=== PATIENT | male | born 1960 | race Caucasian/White ===

== ENCOUNTER 2016-12-15 23:15 | Emergency (ER) | payer OTHER ==
[~2016-12-15] VITALS: Ht 162.6 cm; Wt 74.8 kg
[~2016-12-15 23:15] MED LIST: AUGMENTIN 875 M1 TAB PO; COZAAR50 MG PO; GLUCOPHAGE500 MG PO; ZOCOR20 MG PO; [UNRECOGNIZED DRUG - OTHER] OT
--- NOTE | 2016-12-15 23:30 | NUR ---
PT TAKEN TO BED 3
[2016-12-15 23:32] VITALS: BP 114/87
--- NOTE | 2016-12-15 23:39 | NUR ---
56Y/M PATIENT PRESENT TO ED WITH C/O HEADACHE AND EARACHE X2 DAYS. PATIENT STATES HE HAS DRAINAGE COMING FROM DOREEN EARS. DENIES N/V/D, FEVER X1. WAS SEEN BY PCP 2WKS AGO, REFERRED TO ENT; PRESCRIBED EARDROPS AND ABX. HX:DM,HTN ; SKIN IS PINK/WARM/DRY; AAOX4 WITH EVEN AND STEADY GAIT; LUNGS CLEAR BL; HR EVEN AND REGULAR; PT DENIES ANY FEVER, CP, SOB, OR COUGH AT THIS TIME; PATIENT STATES PAIN OF 10/10 AT THIS TIME; VSS; PATIENT POSITIONED FOR COMFORT; HOB ELEVATED; BEDRAILS UP X2; BED DOWN. ER MD MADE AWARE OF PT STATUS.
--- NOTE | 2016-12-15 23:40 | NUR ---
Dr. Pulido evaluating patient at bedside.
[2016-12-15] MEDS ORDERED: HYDROcodone/APAP 5/325 MG 1 TAB TAB PO ONE (23:45)
[2016-12-15] MEDS ORDERED: KETOROLAC 30 MG/ML VIAL IVP ONE (23:45)
[2016-12-15] MEDS ORDERED: NACL 0.9% 1,000 ML IV ONE (23:45)
--- NOTE | 2016-12-16 00:20 | NUR ---
CALLED CT. LAB BACK, IV DONE.
--- NOTE | 2016-12-16 00:31 | NUR ---
PT TAKEN TO CT
--- NOTE | 2016-12-16 00:56 | NUR ---
PT BACK FROM CT.
[2016-12-16] MEDS ORDERED: fentaNYL 0.05 MG/ML VIAL IVP ONE (01:20)
--- NOTE | 2016-12-16 01:46 | NUR ---
Patient discharged with v/s stable. Written and verbal after care instructions given and explained. Patient alert, oriented and verbalized understanding of instructions. Ambulatory with steady gait. All questions addressed prior to discharge. ID band removed. Patient advised to follow up with PMD. Rx of NAPROSYN 500 MG, CIPRO 500 MG, NORCO5/325MG, OFLOXACIN 0.3% OTIC SOLUTION given. Patient educated on indication of medication including possible reaction and side effects. Opportunity to ask questions provided and answered.
[2016-12-16 01:47] VITALS: BP 123/72
== END 2016-12-16 01:46 | disposition home or self-care (01) ==
LOC: MED 23:15
DX: H60.91 Unspecified otitis externa, right ear (principal); E11.9 Type 2 diabetes mellitus without complications; I10 Essential (primary) hypertension
CPT/HCPCS: 36415; 70460; 80048; 82948; 85025; 96361; 96374; 96375; 99285; J1885; J3010; J7030

== ENCOUNTER 2017-02-06 09:39 | Emergency (ER) | payer OTHER ==
[~2017-02-06] VITALS: Ht 160 cm; Wt 78.0 kg
[2017-02-06 09:44] VITALS: BP 141/90
--- NOTE | 2017-02-06 09:52 | NUR ---
Pt ambulated to bed 7.
--- NOTE | 2017-02-06 09:56 | NUR ---
Patient moved to bed 6.
--- NOTE | 2017-02-06 10:03 | NUR ---
57/M PRESENT TO ER C/O LEFT LEG PAIN. 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
--- NOTE | 2017-02-06 10:07 | NUR ---
XRAY AT BEDSIDE
--- NOTE | 2017-02-06 10:26 | NUR ---
DR DUBOIS AT BEDSIDE
[2017-02-06] MEDS ORDERED: KETOROLAC 30 MG/ML VIAL IVP ONE (10:30)
[2017-02-06] MEDS ORDERED: NACL 0.9% 1,000 ML IV ONE (10:30)
[2017-02-06] MEDS ORDERED: CLINDAMYCIN 900 MG in DEXTROSE 5% 100 ML IV ONE (10:30)
[2017-02-06] MEDS ORDERED: CLINDAMYCIN 900 MG/6 ML VIAL IV ONE (10:43)
--- NOTE | 2017-02-06 11:29 | NUR ---
PT LYING ON BED COMFORTABLY;NO ACUTE DSITRESS NOTED AT THIS TIME;PT VERBALIZES PAIN IS REDUCED FROM 8/10 TO 5/10;WILL CONTINUE TO MONITOR PT.
--- NOTE | 2017-02-06 12:25 | NUR ---
Patient discharged with v/s stable. Written and verbal after care instructions given and explained.Patient alert, oriented and verbalized understanding of instructions. with steady gait. All questions addressed prior to discharge. ID band removed. Patient advised to follow up with PMD. Rx of TRAMADOL HYDROCHLORIDE,BACTRIM,MOTRIN given. Patient educated on indication of medication including possible reaction and side effects. Opportunity to ask questions provided and answered.ADVISED PT TO REFRAIN FROM STRENOUS ACTIVITIES UNTIL PAIN SUBSIDES AND AND EAT FOODS RICH IN IT C TO HASTEN WOUND HEALING AND PT AGREED TO IT.
[2017-02-06 12:28] VITALS: BP 116/82
--- NOTE | 2017-02-09 14:03 | NUR ---
CALLED PATIENT AT NUMBER LEFT WITH NO ANSWER LEFTVOICE MAIL INSTRUCTING HIM TO FOLLOW UP WITH PMD.
== END 2017-02-06 12:25 | disposition home or self-care (01) ==
LOC: MED 09:39
DX: L03.116 Cellulitis of left lower limb (principal); I10 Essential (primary) hypertension; E11.9 Type 2 diabetes mellitus without complications; Z79.899 Other long term (current) drug therapy
CPT/HCPCS: 36415; 71010; 73562; 80053; 82948; 83605; 85025; 85610; 85730; 87040; 96365; 96375; 99285; J1885; J3490; J7030; Q0092

== ENCOUNTER 2017-10-27 18:50 | Inpatient (IN) | payer OTHER ==
[~2017-10-27] VITALS: Ht 162.6 cm; Wt 78.9 kg
[~2017-10-27 18:50] MED LIST changes: +AMOX-842 PO; -AUGMENTIN 875 M1 TAB PO; +COZ50 PO; -COZAAR50 MG PO; -GLUCOPHAGE500 MG PO; +METF500T PO; +OFLO5SOL27 OT; +SIMV20TA1 PO; -ZOCOR20 MG PO; -[UNRECOGNIZED DRUG - OTHER] OT
[2017-10-27 19:14] VITALS: BP 147/76
--- NOTE | 2017-10-27 19:14 | NUR ---
PT RETURNED TO LOBBY
[2017-10-27] MEDS ORDERED: ORE25 PO (19:18)
--- NOTE | 2017-10-27 19:35 | NUR ---
MADE AWARE PT IN LOBBY
--- NOTE | 2017-10-27 20:00 | NUR ---
PATIENT IS A 57 Y/O MALE WHO PRESENTS TO THE ED C/O HEADACHE. PT STATES, "MY HEAD HAS BEEN HURTING." PT REPORTS 9/10 ACHING PAIN THAT DOES NOT RADIATE. PT DENIES CP, SOB, REPORTS VOMITING DENIES NAUSEA/DIARRHEA. PT AAOX4, RR EVEN/UNLABORED. PT REPOSITIONED FOR COMFORT, BED IN LOWEST POSITION. ER MD DR. CAIN NOTIFIED. WILL CONTINUE TO MONITOR.
[2017-10-27] MEDS ORDERED: KETOROLAC 30 MG/ML VIAL IM ONE (20:20)
[2017-10-27] MEDS ORDERED: ONDANSETRON 4 MG ODT PO ONE (20:20)
--- NOTE | 2017-10-27 20:57 | NUR ---
LAB AT BEDSIDE
[2017-10-27] MEDS ORDERED: NACL 0.9% 1,000 ML IV ONE ×2 (21:00→22:40)
[2017-10-27] MEDS ORDERED: SUMAtriptan 25 MG TAB PO ONE (21:00)
[2017-10-27 21:03] LABS: BASOPHILS % (AUTO) 0.4 % (0.0-2.0); EOSINOPHILS # (AUTO) 0.2 K/uL (0-0.4); EOSINOPHILS % (AUTO) 1.5 % (0.0-4.0); HEMOGLOBIN 16.9 g/dL (12.0-18.0); LYMPHOCYTES # (AUTO) 1.9 K/uL (2.0-11.5); LYMPHOCYTES % (AUTO) 15.9 % (20.5-51.1); MEAN CORPUSCULAR HEMOGLOBIN 28 pg (27-31); MEAN CORPUSCULAR HGB CONC 33 g/dL (33-37); MEAN CORPUSCULAR VOLUME 87 fL (80-94); MONOCYTES # (AUTO) 0.6 K/uL (0.8-1.0); MONOCYTES % (AUTO) 5.5 % (1.7-9.3); NEUTROPHILS # (AUTO) 9.1 K/uL (1.8-7.7); NEUTROPHILS % (AUTO) 76.7 % (42.2-75.2); PLATELET COUNT (AUTO) 214 K/uL (140-450); RED BLOOD CELL COUNT(AUTO) 5.97 MIL/uL (4.20-6.10); WHITE BLOOD COUNT (AUTO) 11.8 K/uL (4.8-10.8)
[2017-10-27 21:16] LABS: CARBON DIOXIDE 25.7 mmol/L (21-32); CREATININE 1.5 mg/dL (0.7-1.3); POTASSIUM 3.7 mmol/L (3.5-5.1)
[2017-10-27 21:22] LABS: ALBUMIN 3.7 g/dL (3.4-5.0); TOTAL BILIRUBIN 0.5 mg/dL (0.0-1.0)
--- NOTE | 2017-10-27 21:40 | NUR ---
PATIENT MOVED TO ER BED 1.
[2017-10-27] MEDS ORDERED: MORPHINE SULFATE 4 MG/ML SYR IVP ONE (22:15)
[2017-10-27] MEDS ORDERED: PIPERACILLIN/TAZOBACTAM 3.375 GM in DEXTROSE 5% 50 ML IV ONE (22:20)
[2017-10-27] MEDS ORDERED: PIPERACILLIN/TAZOBACTAM 3.375 GM VIAL IV ONE (22:51)
[2017-10-27] MEDS ORDERED: DEXT 5% / NACL 0.45% 1,000 ML IV SCH (23:13)
[2017-10-27] MEDS ORDERED: MORPHINE SULFATE 2 MG/ML SYR IVP PRN (23:15)
[2017-10-27] MEDS ORDERED: ONDANSETRON 4 MG/2 ML VIAL IVP PRN (23:15)
[2017-10-27] MEDS ORDERED: HYDROcodone/APAP 5/325 MG 1 TAB TAB PO PRN (23:15)
[2017-10-27] MEDS ORDERED: LORazepam 2 MG/ML VIAL IVP PRN (23:15)
--- NOTE | 2017-10-27 23:55 | NUR ---
Admission from ER alert and oreinted breathing even and unlabored on room air. Complaint of headache and abdominal pain just had morphine gioven in ER . Will monitor patient.
--- NOTE | 2017-10-28 00:02 | NUR ---
Patient will be admitted to care of DR LUCAS. Admited to MED SURG. Will go to room 106-B. Belongings list completed. Report to ROSINA.
[2017-10-28 01:13] VITALS: BP 124/78
[2017-10-28] MEDS ORDERED: metroNIDAZOLE 500 MG/NS PREMIX 100 ML IV ONE (02:30)
[2017-10-28] MEDS: MORPHINE SULFATE 4 MG/ML SYR IVP PRN ×4 (03:24→19:54)
[2017-10-28 04:00] VITALS: BP 114/70
[2017-10-28 06:13] LABS: BASOPHILS # (AUTO) 0.1 K/uL (0.00-0.22); BASOPHILS % (AUTO) 1.2 % (0.0-2.0); EOSINOPHILS # (AUTO) 0.3 K/uL (0-0.4); EOSINOPHILS % (AUTO) 3.1 % (0.0-4.0); HEMATOCRIT 44.8 % (36-52); HEMOGLOBIN 14.8 g/dL (12.0-18.0); LYMPHOCYTES % (AUTO) 11.7 % (20.5-51.1); MEAN CORPUSCULAR HEMOGLOBIN 29 pg (27-31); MEAN CORPUSCULAR HGB CONC 33 g/dL (33-37); MEAN CORPUSCULAR VOLUME 88 fL (80-94); MONOCYTES % (AUTO) 10.8 % (1.7-9.3); NEUTROPHILS # (AUTO) 6.4 K/uL (1.8-7.7); NEUTROPHILS % (AUTO) 73.2 % (42.2-75.2); PLATELET COUNT (AUTO) 179 K/uL (140-450); RED BLOOD CELL COUNT(AUTO) 5.11 MIL/uL (4.20-6.10); RED CELL DISTRIBUTION WIDTH 13.2 % (11.6-13.7); WHITE BLOOD COUNT (AUTO) 8.8 K/uL (4.8-10.8)
[2017-10-28 06:51] LABS: ALBUMIN 2.8 g/dL (3.4-5.0); ANION GAP 12.5 (8-16); CARBON DIOXIDE 24.5 mmol/L (21-32); CREATININE 1.1 mg/dL (0.7-1.3); MAGNESIUM 1.9 mg/dL (1.8-2.4); TOTAL BILIRUBIN 0.5 mg/dL (0.0-1.0)
--- NOTE | 2017-10-28 07:30 | NUR ---
REPORT RECEIVED FROM CORPORATE COMMUNICATIONS MANAGER NURSE ROSINA, PT SLEEPING QUIELTY IN NAD, RESP EVEN UNLABORED ON ROOM AIR, AROUSES EASILY BY VOICE, DENIES PAIN OR DISCOMFORT, DENIES ANY IMMEDIATE NEEDS, PLAN OF CARE DISCUSSED, CALL LUIS WITHIN REACH, SIDE RAILS UP, BED LOCKED IN LOW POSITION, WILL CONTINUE TO MONTIOR.
[2017-10-28 08:00] VITALS: BP 120/72
[2017-10-28] MEDS: ENOXAPARIN 40 MG/0.4 ML SYR SUBQ SCH (08:13)
--- NOTE | 2017-10-28 08:20 | NUR ---
PT C/O LEF UPPER ABD PAIN, 06/18, ALSO C/O SAUL, MORPHINE GIVEN PER PRN ORDER, IV ANTIBIOTICS STARTED SCHEDULED, WILL CONTINUE TO MONITOR.
--- NOTE | 2017-10-28 08:20 | NUR ---
ROCEPHIN 1000MG IN 50ML D5W IVPB STARTED AT THIS TIME AT 100ML/HR.
--- NOTE | 2017-10-28 08:40 | NUR ---
DR LUCAS AT BEDSIDE FOR EVALUATION.
--- NOTE | 2017-10-28 08:50 | NUR ---
ROCEPHIN 1000MG IN 50ML D5W IVPB INFUSION COMPLETED AT THIS TIME.
[2017-10-28] MEDS ORDERED: INSULIN LISPRO SLIDING SCALE 100 UNITS/ML VIAL SUBQ PRN (08:55)
[2017-10-28] MEDS ORDERED: DEXTROSE 50% 50 ML SYR IVP PRN (08:55)
[2017-10-28] MEDS ORDERED: metroNIDAZOLE 500 MG/NS PREMIX 100 ML IV SCH (09:00)
[2017-10-28] MEDS ORDERED: MOT200 PO (09:06)
[2017-10-28] MEDS ORDERED: AMOX-1000 PO (09:06)
[2017-10-28] MEDS ORDERED: GUAI-652 PO (09:06)
--- NOTE | 2017-10-28 10:30 | NUR ---
PT STATES HE WANTS TRY EATING REGULAR FOOD AND WANT TO GO HOME BEFORE 12NOON, PT PROVIDED WITH CRACKERS AND APPLESAUCE, WILL CONTINUE TO MONITOR.
[2017-10-28] MEDS: BLOOD GLUCOSE MONITORING 1 DEV DEV FS SCH ×3 (11:30→21:32)
[2017-10-28] MEDS: metroNIDAZOLE 500 MG/NS PREMIX 100 ML IV SCH ×2 (12:00→20:04)
--- NOTE | 2017-10-28 12:00 | NUR ---
FLAGYL 500MG IN 100ML NS IVPB STARTED AT 100ML/HR.
[2017-10-28] MEDS: ACETAMINOPHEN 325 MG TAB PO PRN ×2 (12:02→20:11)
--- NOTE | 2017-10-28 12:07 | NUR ---
PT C/O SAUL, STATES HE WANTS TO STAY AND NOT GET DISCHARGED TODAY, TYLENOL GIVEN FOR SAUL, BLOOD SUGAR CHECKED 178. WILL GIVEN 2U INSULIN PER SLIDING SCALE. FLAGYL STARTED PER ORDER. IV SITE CLEAR. Addendum: 10/28/17 at 1224 by Aishwarya Morel RN PT FEELS WARM/HOT TO TOUCH, ORAL TEMP 99.6.
--- NOTE | 2017-10-28 13:00 | NUR ---
FLAGYL 500MG IN 100ML NS IVPB INFUSION COMPLETED AT THIS TIME.
--- NOTE | 2017-10-28 14:20 | NUR ---
PT YUAN PO LUNCH WELL, STATES ABD PAIN ONLY WITH PALPATION, BUT PT CONTINUES TO C/O SAUL, PT STATES HE DOESNT FEEL WELL ENOUGH TO GO HOME, DR LUCAS CALLED TO NOTIFY OF PT'S REQUEST TO STAY, OK BY DR LUCAS FOR PT TO STAY, PT STATUS CHANGED TO INPATIENT STATUS.
--- NOTE | 2017-10-28 15:52 | NUR ---
WAS TOLD BY ANDRAE FROM [facility] THIS AM, THAT [facility] IS NO LONGER, AND IT NOW [facility]. I CALLED [employer],[phone] AND SPOKE WITH JOYCELYN. SHE SAID TO JUST FAX THE FACE SHEET TO [employer] AT [phone], OTHERWISE STEPHANIE IS RESPONSIBLE FOR THIS ADMIT FAXED INITIAL REVIEW TO STEPHANIE [phone] PHONE [phone] X [phone] TIARA.
[2017-10-28 16:00] VITALS: BP 128/72
--- NOTE | 2017-10-28 16:30 | NUR ---
PT SLEEPING QUIETLY IN NAD, AROUSES EASILY, PT STATES HEADACHE IS STILL THERE BUT BETTER THAN BEFORE, PT IN GOOD MOOD, JOKING ABOUT "ORDERING JAYDON TIJERINAS", BLOOD SUGAR CHECKED, 104, NO INSULIN NEEDED, PT DENIES ANY IMMEDIATE NEEDS, WILL CONTINUE TO MONTIOR.
--- NOTE | 2017-10-28 19:26 | NUR ---
REPORT GIVEN TO AERONAUTICAL ENGINEERING PROFESSOR NURSE, PT IN STABLE CONDITION.
--- NOTE | 2017-10-28 19:27 | NUR ---
RECD. RESTING IN BED, AWAKE, A/OX4. RESPIRATION EVEN AND UNLABORED. IV OF NS AT 10 ML/HR INFUSING, LEFT AC G20. PLAN OF CARE FOR THE SHIFT DISCUSSED. VERBALIZE UNDERSTANDING. DENIES PAIN 0/10.
--- NOTE | 2017-10-28 19:30 | NUR ---
Patient's Plan of Care was discussed and reviewed with ASSEMBLY MACHINE SET UP MECHANIC: TERRI VAIL
[2017-10-28 19:51] VITALS: BP 119/68
--- NOTE | 2017-10-28 20:11 | NUR ---
TEMPERATURE CHECKED - 102.5 F, MEDICATED WITH TYLENOL 650 MG. PO. COOLING MEASURES GIVEN.
--- NOTE | 2017-10-28 21:20 | NUR ---
TEMPERATURE CHECKED - 99.0 F. ADVISED TO REMOVE EXTRA BLANKETS AND DRINK MORE FLUIDS.
--- NOTE | 2017-10-28 21:30 | NUR ---
SNACK FOR THE NIGHT GIVEN. WATCHING TV.
--- NOTE | 2017-10-28 23:15 | NUR ---
COMPLAINING OF UNABLE TO SLEEP FOR 36 HOURS NOW, WILL CALL MD FOR ORDER FOR SLEEPING PILL.
--- NOTE | 2017-10-28 23:30 | NUR ---
INFORMED DR. MICHEL PATIENT UNABLE TO GO HOME TODAY, STILL COMPLAINING OF ABDOMINAL PAIN AND WANTS MEDICATION FOR SLEEP, ORDERED AMBIEN 5 MG. PO .
[2017-10-28] MEDS ORDERED: ZOLPIDEM 5 MG TAB PO PRN (23:35)
--- NOTE | 2017-10-29 00:18 | NUR ---
MEDICATED WITH AMBIEN 5 MG. PO ORDERED FOR SLEEP.
[2017-10-29 00:20] VITALS: BP 125/76
--- NOTE | 2017-10-29 00:30 | NUR ---
AFEBRILE, RESTING IN BED COMFORTABLY. ENDORSED TO HONORIO WATERS FOR CONTINUITY OF CARE.
--- NOTE | 2017-10-29 01:30 | NUR ---
RECEIVED BEDSIDE REPORT FROM NURSE TERRI PEARSON, PT STABLE, NO DISTRESS NOTED, CALL LIGHT WITHIN REACH, WILL CONTINUE TO MONITOR.
[2017-10-29] MEDS: metroNIDAZOLE 500 MG/NS PREMIX 100 ML IV SCH (04:26)
[2017-10-29] MEDS: MORPHINE SULFATE 4 MG/ML SYR IVP PRN (04:26)
[2017-10-29] MEDS: BLOOD GLUCOSE MONITORING 1 DEV DEV FS SCH (06:58)
[2017-10-29 07:11] LABS: BASOPHILS # (AUTO) 0.1 K/uL (0.00-0.22); BASOPHILS % (AUTO) 0.8 % (0.0-2.0); EOSINOPHILS # (AUTO) 0.2 K/uL (0-0.4); EOSINOPHILS % (AUTO) 2.9 % (0.0-4.0); HEMATOCRIT 46.2 % (36-52); HEMOGLOBIN 15.3 g/dL (12.0-18.0); LYMPHOCYTES # (AUTO) 0.8 K/uL (2.0-11.5); LYMPHOCYTES % (AUTO) 11.9 % (20.5-51.1); MEAN CORPUSCULAR HEMOGLOBIN 29 pg (27-31); MEAN CORPUSCULAR HGB CONC 33 g/dL (33-37); MEAN CORPUSCULAR VOLUME 87 fL (80-94); MONOCYTES # (AUTO) 0.6 K/uL (0.8-1.0); MONOCYTES % (AUTO) 9.1 % (1.7-9.3); NEUTROPHILS # (AUTO) 4.7 K/uL (1.8-7.7); NEUTROPHILS % (AUTO) 75.3 % (42.2-75.2); PLATELET COUNT (AUTO) 196 K/uL (140-450); RED BLOOD CELL COUNT(AUTO) 5.33 MIL/uL (4.20-6.10); RED CELL DISTRIBUTION WIDTH 13.2 % (11.6-13.7)
--- NOTE | 2017-10-29 07:17 | NUR ---
GAVE BEDSIDE TO DAY SHIFT NURSE JUS OLMEDO, ENDORSED PLAN OF CARE, PT STABLE, NO DISTRESS NOTED. Addendum: 10/29/17 at 8418 by Cata Menezes RN WRONG PATIENT
--- NOTE | 2017-10-29 07:17 | NUR ---
ASSUMED CONTINUITY OF CARE. NO SIGNS AND SYMPTOMS OF ACUTE DISTRESS NOTED. INITIAL ASSESSMENT DONE. KEEP COMFORTABLE ON BED. EXPLAINED DIAGNOSIS, PLAN OF CARE, PAIN MANAGEMENT TEACHING, USE OF CALL LIGHT/BED/TV/BATHROOM. VERBALIZED UNDERSTANDING. CALL LIGHT WITHIN REACH.
--- NOTE | 2017-10-29 07:17 | NUR ---
GAVE BEDSIDE TO DAY SHIFT NURSE TY PEARSON, ENDORSED PLAN OF CARE, PT STABLE, NO DISTRESS NOTED.
[2017-10-29 07:22] LABS: ANION GAP 10.8 (8-16); CARBON DIOXIDE 25.8 mmol/L (21-32); POTASSIUM 3.6 mmol/L (3.5-5.1)
[2017-10-29 08:00] VITALS: BP 124/83
--- NOTE | 2017-10-29 08:00 | NUR ---
Patient's Plan of Care was discussed and reviewed with GLASS DECORATOR: TY RODRÍGUEZ. ANA
[2017-10-29 08:02] LABS: WHITE BLOOD COUNT (AUTO) 6.4 K/uL (4.8-10.8)
--- NOTE | 2017-10-29 08:35 | NUR ---
DR. SHAYY PEREYRA, REVIEWED PT. CHART.
[2017-10-29] MEDS: ENOXAPARIN 40 MG/0.4 ML SYR SUBQ SCH (09:01)
--- NOTE | 2017-10-29 09:30 | NUR ---
INFORMED DR. LUCAS ABOUT PT. D/C ORDER.
--- NOTE | 2017-10-29 10:40 | NUR ---
EXPLAINED ABOUT MD D/C ORDER, D/C INSTRUCTIONS AND TEACHING, MD D/C PRESCRIPTION LIST EDUCATION, MD FOLLOW-UP, DISEASE MANAGEMENT TEACHING, PAIN MANAGEMENT TEACHING, DIET. VERBALIZED UNDERSTANDING.
--- NOTE | 2017-10-29 10:55 | NUR ---
REFUSED TO USE WHEELCHAIR. PT. AMBULATORY AND HAD STEADY GAIT AND BALANCE. D/C HOME, AWAKE, ALERT, AND ORIENTED X4. SPEECH CLEAR. NO C/O PAIN. NO SOB, NOTED. IN STABLE CONDITION. INFORMED CHARGE NURSE MAGGIE SORENSON.
== END 2017-10-29 10:55 | disposition home or self-care (01) | DRG 720 ==
LOC: MED 18:50 → MTU 23:26 → OBSVTOIN 10-28 13:56
PROVIDERS: ADMIT Internal Medicine; ATTEND Internal Medicine
DX: A41.9 Sepsis, unspecified organism (principal); N17.9 Acute kidney failure, unspecified; G43.909 Migraine, unspecified, not intractable, without status migrainosus; K57.32 Diverticulitis of large intestine without perforation or abscess without bleeding; I10 Essential (primary) hypertension; J06.9 Acute upper respiratory infection, unspecified; E11.9 Type 2 diabetes mellitus without complications; H66.93 Otitis media, unspecified, bilateral; F17.200 Nicotine dependence, unspecified, uncomplicated; Z71.6 Tobacco abuse counseling; Z87.442 Personal history of urinary calculi
CPT/HCPCS: 96361; 96365; 96372; 96375; 99285; G0378; 36415; 71010; 80048; 80053; 82948; 83605; 83690; 83735; 85025; 87040; 87081; J0696; J1650; J1815; J1885; J2270; J2543; J3490; J7030; J7060; S0119

== ENCOUNTER 2017-11-23 18:27 | Emergency (ER) | payer OTHER ==
[~2017-11-23] VITALS: Ht 162.6 cm; Wt 74.8 kg
[~2017-11-23 18:27] MED LIST changes: +AMOX-1000 PO; -AMOX-842 PO; +GUAI-652 PO; +MOT200 PO; -OFLO5SOL27 OT; +ORE25 PO
[2017-11-23 19:20] VITALS: BP 142/90
--- NOTE | 2017-11-23 19:22 | NUR ---
TO LOBBY, A/W BED, JADA, VSJany, ERMHellen NOTED
--- NOTE | 2017-11-23 21:46 | NUR ---
PT CAME IN C/O MID BACK PAIN 07/19 WHERE THE ROUND AND RAISED AREA IS X4 DAYS. PT STATED THAT HE HAD THE BUMP FOR A WHILE BUT THE PAIN BECAME WORSE SINCE THURSDAY. RR EVEN AND UNLABORED. PERRL. S1 AND S2 HEARD. NO EDEMA. DR. HANSON MADE AWARE.
--- NOTE | 2017-11-23 21:48 | NUR ---
patient ambulated to bed 3
[2017-11-23] MEDS ORDERED: LIDOCAINE/EPI 2% 1:100000 20 ML VIAL INJ ONE (21:55)
[2017-11-23] MEDS ORDERED: KETOROLAC 60 MG/2 ML VIAL IM ONE (22:05)
--- NOTE | 2017-11-23 22:09 | NUR ---
PAIN MED ADMINISTERED ORDERED. PT TOLERATED WELL.
--- NOTE | 2017-11-23 22:55 | NUR ---
DR. HANSON PERFORMING I&D AT BED SIDE, [facility] BY VICKIE EMT.
--- NOTE | 2017-11-23 23:01 | NUR ---
DR. HANSON ADMINISTERING XYLOCAINE.
--- NOTE | 2017-11-23 23:42 | NUR ---
Patient discharged with v/s stable. Written and verbal after care instructions given and explained. Patient alert, oriented and verbalized understanding of instructions. Ambulatory with steady gait. All questions addressed prior to discharge. ID band removed. Patient advised to follow up with PMD. Rx of BACTRIM, KEFLEX, IBUPROFEN given. Patient educated on indication of medication including possible reaction and side effects. Opportunity to ask questions provided and answered.
[2017-11-23 23:44] VITALS: BP 146/88
== END 2017-11-23 23:40 | disposition home or self-care (01) ==
LOC: MED 18:27
DX: L02.212 Cutaneous abscess of back [any part, except buttock and flank] (principal); E11.9 Type 2 diabetes mellitus without complications; I10 Essential (primary) hypertension; Z79.899 Other long term (current) drug therapy; Z87.442 Personal history of urinary calculi
CPT/HCPCS: 10060; 96372; 99283; J1885; J2001

== ENCOUNTER 2017-11-25 10:49 | Emergency (ER) | payer OTHER ==
[~2017-11-25] VITALS: Ht 162.6 cm; Wt 76.7 kg
[2017-11-25 11:18] VITALS: BP 155/93
--- NOTE | 2017-11-25 11:30 | NUR ---
PT TAKEN TO OF1.
--- NOTE | 2017-11-25 11:35 | NUR ---
PATIENT PRESENTS TO ED WITH S/P I&D DONE TO HIS BACK 2 DAYS AGO. PT HERE FOR RECHECK HX HTN, DM; DENIES N/V/D; SKIN IS PINK/WARM/DRY; AAOX4 WITH EVEN AND STEADY GAIT; LUNGS CLEAR BL; HR EVEN AND REGULAR; PT DENIES ANY FEVER, CP, SOB, OR COUGH AT THIS TIME; PATIENT STATES PAIN OF 0/10 AT THIS TIME; VSS; PATIENT POSITIONED FOR COMFORT; ER MD MADE AWARE OF PT STATUS.
[2017-11-25 12:56] VITALS: BP 148/98
--- NOTE | 2017-11-25 12:56 | NUR ---
Patient discharged with v/s stable. Written and verbal after care instructions given and explained. Patient verbalized understanding. Ambulatory with steady gait. All questions addressed prior to discharge. Advised to follow up with PMD.
== END 2017-11-25 12:56 | disposition home or self-care (01) ==
LOC: MED 10:49
DX: Z48.01 Encounter for change or removal of surgical wound dressing (principal); F17.210 Nicotine dependence, cigarettes, uncomplicated; E11.9 Type 2 diabetes mellitus without complications; I10 Essential (primary) hypertension; Z71.6 Tobacco abuse counseling
CPT/HCPCS: 99283

== ENCOUNTER 2017-12-13 16:36 | Emergency (ER) | payer OTHER ==
[~2017-12-13] VITALS: Ht 160 cm; Wt 78.0 kg
[~2017-12-13 16:36] MED LIST changes: -AMOX-1000 PO; -GUAI-652 PO; -MOT200 PO; -SIMV20TA1 PO
[2017-12-13 17:11] VITALS: BP 137/95
--- NOTE | 2017-12-13 20:00 | NUR ---
57/M CAME IN W C/O 08/18 PAIN TO ABSCESS TO BACK. PT STATES HE WAS SEEN HERE X2 WEEKS FOR SAME ABCESS, WAS DRAINED AND WAS GIVEN ANTIBIOTICS. PT REPORTS HE FINISHED COURSE BUT HAD SEVERE PAIN TODAY. DENIES FEVER/CHILL, N/V/D, NO DRAINAGE NOTED AT THIS TIME. PMH: HTN, DM
[2017-12-13] MEDS ORDERED: KETOROLAC 60 MG/2 ML VIAL IM ONE (20:20)
[2017-12-13] MEDS ORDERED: LIDOCAINE 1% 500 MG/50 ML VIAL INJ SCH (20:20)
[2017-12-13] MEDS ORDERED: LIDOCAINE MPF 1% - **ER/OR** 5 ML ONE (20:27)
[2017-12-13 21:25] VITALS: BP 128/76
[2017-12-13] MEDS ORDERED: BACITRACIN OINT 500 UNITS/GM PKT TP ONE (21:25)
--- NOTE | 2017-12-13 21:25 | NUR ---
Patient discharged with v/s stable. Written and verbal after care instructions given and explained. Patient alert, oriented and verbalized understanding of instructions. Ambulatory with steady gait. All questions addressed prior to discharge. ID band removed. Patient advised to follow up with PMD. Rx of MOTRIN AND KEFLEX given. Patient educated on indication of medication including possible reaction and side effects. Opportunity to ask questions provided and answered.
== END 2017-12-13 21:25 | disposition home or self-care (01) ==
LOC: MED 16:36
DX: L02.212 Cutaneous abscess of back [any part, except buttock and flank] (principal); E11.9 Type 2 diabetes mellitus without complications; I10 Essential (primary) hypertension; Z79.899 Other long term (current) drug therapy
CPT/HCPCS: 10060; 96372; 99283; J1885; J2001

== ENCOUNTER 2018-01-22 03:20 | Emergency (ER) | payer OTHER ==
[~2018-01-22] VITALS: Ht 154.9 cm; Wt 79.6 kg
[2018-01-22 03:23] VITALS: BP 156/99
[2018-01-22] MEDS ORDERED: diphenhydrAMINE 50 MG/ML VIAL IVP ONE (03:45)
[2018-01-22] MEDS ORDERED: PROCHLORPERAZINE 10 MG/2 ML VIAL IVP ONE (03:45)
[2018-01-22 03:49] LABS: BASOPHILS # (AUTO) 0.2 K/uL (0.00-0.22); BASOPHILS % (AUTO) 2.2 % (0.0-2.0); EOSINOPHILS # (AUTO) 0.3 K/uL (0-0.4); EOSINOPHILS % (AUTO) 4.2 % (0.0-4.0); HEMATOCRIT 49.6 % (36-52); HEMOGLOBIN 16.3 g/dL (12.0-18.0); LYMPHOCYTES # (AUTO) 1.9 K/uL (2.0-11.5); LYMPHOCYTES % (AUTO) 25.6 % (20.5-51.1); MEAN CORPUSCULAR HEMOGLOBIN 28 pg (27-31); MEAN CORPUSCULAR HGB CONC 33 g/dL (33-37); MEAN CORPUSCULAR VOLUME 86 fL (80-94); MONOCYTES # (AUTO) 0.6 K/uL (0.8-1.0); MONOCYTES % (AUTO) 7.7 % (1.7-9.3); NEUTROPHILS # (AUTO) 4.6 K/uL (1.8-7.7); NEUTROPHILS % (AUTO) 60.3 % (42.2-75.2); PLATELET COUNT (AUTO) 239 K/uL (140-450); RED BLOOD CELL COUNT(AUTO) 5.77 MIL/uL (4.20-6.10); RED CELL DISTRIBUTION WIDTH 14.1 % (11.6-13.7); WHITE BLOOD COUNT (AUTO) 7.6 K/uL (4.8-10.8)
[2018-01-22 03:59] LABS: ACETONE, SERUM NEGATIVE (NEGATIVE)
[2018-01-22 04:01] LABS: ANION GAP 13.1 (8-16); CARBON DIOXIDE 26.3 mmol/L (21-32); CREATININE 1.3 mg/dL (0.7-1.3); LIPASE 287 U/L (73-393); POTASSIUM 3.4 mmol/L (3.5-5.1)
[2018-01-22 04:05] LABS: PROTHROMBIN TIME 9.8 secs (10.8-13.4)
[2018-01-22] MEDS ORDERED: NACL 0.9% 1,000 ML IV ONE (04:05)
[2018-01-22 04:07] LABS: ALBUMIN 3.6 g/dL (3.4-5.0); TOTAL BILIRUBIN 0.3 mg/dL (0.0-1.0)
[2018-01-22 04:23] LABS: APPEARANCE,URINE CLEAR (CLEAR); BILIRUBIN,URINE NEGATIVE (NEGATIVE); BLOOD, URINE TRACE-I (NEGATIVE); COLOR,URINE YELLOW (YELLOW); LEUKOCYTE ESTERASE ,URINE NEGATIVE (NEGATIVE); NITRITE, URINE NEGATIVE (NEGATIVE); PH,URINE 6.5 (5.0-9.0); UGLUCOSE 3+ (NEGATIVE)
[2018-01-22 04:32] LABS: RBC,URINE 0-5 (RARE) /HPF (0-5); WBC,URINE 0-5 (RARE) /HPF (0-5)
[2018-01-22 05:56] VITALS: BP 119/80
== END 2018-01-22 05:56 | disposition home or self-care (01) ==
LOC: MED 03:20
DX: R51 Headache (principal); E11.65 Type 2 diabetes mellitus with hyperglycemia; I10 Essential (primary) hypertension; E78.5 Hyperlipidemia, unspecified
CPT/HCPCS: 36415; 70450; 71045; 80053; 81001; 82009; 83690; 83880; 84484; 85025; 85610; 93005; 96361; 96374; 96375; 99285; J0780; J1200; J7030; Q0092

== ENCOUNTER 2018-01-31 04:17 | Emergency (ER) | payer OTHER ==
[~2018-01-31] VITALS: Ht 162.6 cm; Wt 81.2 kg
[2018-01-31 04:19] VITALS: BP 137/89
--- NOTE | 2018-01-31 04:29 | NUR ---
PT W/C ASSISTED TO CHAIR C
--- NOTE | 2018-01-31 04:36 | NUR ---
PT MOVED TO BED 1
--- NOTE | 2018-01-31 04:37 | NUR ---
PATIENT IS A 58 Y/O MALE WHO PRESENTS TO THE ED C/O DIZZINESS. PT REPORTS HE IS A DIABETIC AND HAVING BLURRY VISION AND DIZZINESS. PT REPORTS 10/10 ACHING HEADACHE PAIN THAT DOES NOT RADIATE. PT DENIES CP, SOB, REPORTS VOMITING DENIES NAUSEA/DIARRHEA. PT AAOX4, RR EVEN/UNLABORED. PT REPOSITIONED FOR COMFORT, BED IN LOWEST POSITION. ER MD DR. VIGIL NOTIFIED. WILL CONTINUE TO MONITOR.
[2018-01-31] MEDS ORDERED: MORPHINE SULFATE 4 MG/ML SYR IVP ONE (05:35)
[2018-01-31] MEDS ORDERED: NACL 0.9% 1,000 ML IV ONE ×2 (05:35→06:55)
[2018-01-31] MEDS ORDERED: METOCLOPRAMIDE 10 MG/2 ML INJ VIAL IVP ONE (05:35)
[2018-01-31] MEDS ORDERED: FLUORESCEIN OPTH STRIP 0.6 MG OP ONE (05:35)
[2018-01-31] MEDS ORDERED: FLUORESCEIN OPTH STRIP 0.6 MG ONE (05:42)
[2018-01-31] MEDS ORDERED: TETRACAINE HCL/PF 0.5% OPTH 4 ML BTL ONE (05:43)
[2018-01-31 06:27] LABS: BASOPHILS # (AUTO) 0.1 K/uL (0.00-0.22); BASOPHILS % (AUTO) 1.5 % (0.0-2.0); EOSINOPHILS # (AUTO) 0.3 K/uL (0-0.4); EOSINOPHILS % (AUTO) 4.1 % (0.0-4.0); HEMATOCRIT 49.1 % (36-52); HEMOGLOBIN 15.7 g/dL (12.0-18.0); LYMPHOCYTES # (AUTO) 1.3 K/uL (2.0-11.5); LYMPHOCYTES % (AUTO) 18.4 % (20.5-51.1); MEAN CORPUSCULAR HEMOGLOBIN 28 pg (27-31); MEAN CORPUSCULAR HGB CONC 32 g/dL (33-37); MEAN CORPUSCULAR VOLUME 87.2 fL (80-94); MONOCYTES # (AUTO) 0.9 K/uL (0.8-1.0); MONOCYTES % (AUTO) 12.9 % (1.7-9.3); NEUTROPHILS # (AUTO) 4.2 K/uL (1.8-7.7); NEUTROPHILS % (AUTO) 63.1 % (42.2-75.2); PLATELET COUNT (AUTO) 228 K/uL (140-450); RED BLOOD CELL COUNT(AUTO) 5.63 MIL/uL (4.20-6.10); RED CELL DISTRIBUTION WIDTH 14.2 % (11.6-13.7); WHITE BLOOD COUNT (AUTO) 6.9 K/uL (4.8-10.8)
--- NOTE | 2018-01-31 06:34 | NUR ---
Patient appears to be resting comfortably in bed. Vital Signs within normal limits. Respirations even and unlabored.
[2018-01-31 06:42] LABS: ALBUMIN 3.4 g/dL (3.4-5.0); ANION GAP 13.6 (8-16); CARBON DIOXIDE 26.4 mmol/L (21-32); CREATININE 1.2 mg/dL (0.7-1.3); PHOSPHORUS 3.8 mg/dL (2.5-4.9); TOTAL BILIRUBIN 0.3 mg/dL (0.0-1.0)
[2018-01-31 06:42] LABS: APPEARANCE,URINE CLEAR (CLEAR); BILIRUBIN,URINE NEGATIVE (NEGATIVE); BLOOD, URINE TRACE-I (NEGATIVE); COLOR,URINE YELLOW (YELLOW); LEUKOCYTE ESTERASE ,URINE NEGATIVE (NEGATIVE); NITRITE, URINE NEGATIVE (NEGATIVE); PH,URINE 6.5 (5.0-9.0); UGLUCOSE 3+ (NEGATIVE)
[2018-01-31 06:48] LABS: BARBITURATE, URINE NEG. ng/ml (NEG <=200); BENZODIAZEPINE, URINE NEG. ng/mL (NEG <=200); CANNABINOID, URINE NEG. ng/mL (NEG <=50); COCAINE, URINE NEG. ng/mL (NEG <=300); OPIATE, URINE POS. ng/mL (NEG <=2000); PHENCYCLIDINE SCREEN,URINE NEG. ng/mL (NEG <=25)
[2018-01-31 06:52] LABS: RBC,URINE 0-5 (RARE) /HPF (0-5); WBC,URINE 0-5 (RARE) /HPF (0-5)
[2018-01-31] MEDS ORDERED: INSULIN REGULAR, HUMAN 100 UNIT/ML VIAL SUBQ ONE (06:55)
[2018-01-31 06:59] LABS: PROTHROMBIN TIME 10.9 secs (10.8-13.4)
--- NOTE | 2018-01-31 07:07 | NUR ---
PT TAKEN TO CT
--- NOTE | 2018-01-31 07:13 | NUR ---
Pt report given to HONORIO VALLE. Transfer of care at this time.
[2018-01-31] MEDS ORDERED: INSULIN REGULAR, HUMAN 100 UNIT/ML VIAL IV ONE (07:15)
[2018-01-31] MEDS ORDERED: SUMAtriptan 25 MG TAB PO ONE (07:20)
--- NOTE | 2018-01-31 07:30 | NUR ---
Pt returned from CT and placed in bed 1.
--- NOTE | 2018-01-31 08:04 | NUR ---
Dr. Ramirez re-evaluating patient at bedside.
--- NOTE | 2018-01-31 08:09 | NUR ---
Pt ambulated to restroom at this time with steady gait.
[2018-01-31] MEDS ORDERED: chlorproMAZINE 25 MG/ML AMP IM ONE (08:15)
--- NOTE | 2018-01-31 09:25 | NUR ---
IV removed, catheter intact and site benign. Applied folded 4x4 gauze and tape to stop bleeding.
[2018-01-31 09:39] VITALS: BP 141/97
== END 2018-01-31 09:25 | disposition home or self-care (01) ==
LOC: MED 04:17
DX: G43.909 Migraine, unspecified, not intractable, without status migrainosus (principal); E11.65 Type 2 diabetes mellitus with hyperglycemia; G93.89 Other specified disorders of brain; I10 Essential (primary) hypertension; Z87.442 Personal history of urinary calculi; Z79.899 Other long term (current) drug therapy; Z79.84 Long term (current) use of oral hypoglycemic drugs
CPT/HCPCS: 36415; 70450; 70481; 71045; 80053; 80305; 81001; 82009; 82803; 82948; 83690; 83735; 84100; 84484; 85025; 85610; 93005; 96361; 96372; 96374; 96375; 99285; J1815; J2270; J2765; J3230; Q0092

== ENCOUNTER 2018-02-07 20:13 | Inpatient (IN) | payer OTHER ==
[~2018-02-07] VITALS: Ht 162.6 cm; Wt 72.6 kg
[2018-02-07 20:17] VITALS: BP 138/96
[2018-02-07] MEDS ORDERED: NACL 0.9% 1,000 ML IV ONE ×2 (20:30→21:30)
[2018-02-07] MEDS ORDERED: INSULIN REGULAR, HUMAN 100 UNIT/ML VIAL SUBQ ONE ×2 (20:30→21:30)
[2018-02-07] MEDS ORDERED: ASPIRIN 325 MG TAB PO ONE (20:40)
[2018-02-07] MEDS ORDERED: MORPHINE SULFATE 4 MG/ML SYR IVP ONE (20:40)
[2018-02-07 20:46] LABS: BASOPHILS # (AUTO) 0.1 K/uL (0.00-0.22); BASOPHILS % (AUTO) 0.8 % (0.0-2.0); EOSINOPHILS # (AUTO) 0.1 K/uL (0-0.4); EOSINOPHILS % (AUTO) 1.4 % (0.0-4.0); HEMATOCRIT 51.1 % (36-52); HEMOGLOBIN 16.6 g/dL (12.0-18.0); LYMPHOCYTES # (AUTO) 1.7 K/uL (2.0-11.5); LYMPHOCYTES % (AUTO) 21.1 % (20.5-51.1); MEAN CORPUSCULAR HEMOGLOBIN 28 pg (27-31); MEAN CORPUSCULAR HGB CONC 32 g/dL (33-37); MEAN CORPUSCULAR VOLUME 86.9 fL (80-94); MONOCYTES # (AUTO) 0.6 K/uL (0.8-1.0); NEUTROPHILS # (AUTO) 5.3 K/uL (1.8-7.7); NEUTROPHILS % (AUTO) 68.7 % (42.2-75.2); PLATELET COUNT (AUTO) 240 K/uL (140-450); RED BLOOD CELL COUNT(AUTO) 5.88 MIL/uL (4.20-6.10); RED CELL DISTRIBUTION WIDTH 13.7 % (11.6-13.7); WHITE BLOOD COUNT (AUTO) 7.8 K/uL (4.8-10.8)
[2018-02-07 20:48] LABS: APPEARANCE,URINE CLEAR (CLEAR); BILIRUBIN,URINE NEGATIVE (NEGATIVE); BLOOD, URINE TRACE-I (NEGATIVE); COLOR,URINE YELLOW (YELLOW); LEUKOCYTE ESTERASE ,URINE NEGATIVE (NEGATIVE); NITRITE, URINE NEGATIVE (NEGATIVE); UGLUCOSE 3+ (NEGATIVE)
[2018-02-07 20:53] LABS: RBC,URINE 0-5 (RARE) /HPF (0-5); WBC,URINE 0-5 (RARE) /HPF (0-5)
[2018-02-07 20:57] LABS: ACETONE, SERUM NEGATIVE (NEGATIVE)
[2018-02-07 21:06] LABS: ALBUMIN 3.7 g/dL (3.4-5.0); ANION GAP 16.9 (8-16); CARBON DIOXIDE 23.8 mmol/L (21-32); CHLORIDE 98 mmol/L (98-107); CREATININE 1.5 mg/dL (0.7-1.3); GFR ARICAN-AMERICAN 62 mL/min (>90); POTASSIUM 3.7 mmol/L (3.5-5.1); SODIUM SERUM 135 mmol/L (136-145); TOTAL BILIRUBIN 0.5 mg/dL (0.0-1.0); UREA NITROGEN, BLOOD 17 mg/dL (7-18)
[2018-02-07 21:08] LABS: GLUCOSE 653 mg/dL (74-106)
[2018-02-07 21:15] LABS: ASPARTATE AMINOTRANSFERASE 45 U/L (15-37)
[2018-02-07] MEDS ORDERED: AMOXICILLIN 500 MG CAP PO ONE (21:30)
[2018-02-07] MEDS ORDERED: HYDROcodone/APAP 7.5/325 MG 1 TAB PO PRN (21:35)
[2018-02-07] MEDS ORDERED: DEXTROSE 50% 50 ML SYR IVP PRN (21:35)
[2018-02-07] MEDS ORDERED: ACETAMINOPHEN 325 MG TAB PO PRN (21:35)
[2018-02-07] MEDS ORDERED: ONDANSETRON 4 MG/2 ML VIAL IVP PRN (21:35)
[2018-02-07 21:58] LABS: PROTHROMBIN TIME 10.1 secs (10.8-13.4)
[2018-02-07 21:59] LABS: BARBITURATE, URINE NEG. ng/ml (NEG <=200); BENZODIAZEPINE, URINE NEG. ng/mL (NEG <=200); CANNABINOID, URINE NEG. ng/mL (NEG <=50); COCAINE, URINE NEG. ng/mL (NEG <=300); OPIATE, URINE NEG. ng/mL (NEG <=2000); PHENCYCLIDINE SCREEN,URINE NEG. ng/mL (NEG <=25)
[2018-02-07 22:05] VITALS: BP 151/94
[2018-02-07 22:10] LABS: CHOL/HDL RATIO 9.4 (1-4.5); FREE T4 (FREE THYROXINE) 1.07 ng/dL (0.76-1.46); MAGNESIUM 2.1 mg/dL (1.8-2.4); PHOSPHORUS 2.8 mg/dL (2.5-4.9); THYROID STIMULATING HORMONE 0.55 uIU/mL (0.34-3.74)
[2018-02-07] MEDS ORDERED: NITROGLYCERIN 0.4 MG TAB SL PRN (22:50)
[2018-02-07] MEDS: NACL 0.9% 1,000 ML IV SCH (23:21)
[2018-02-08] MEDS: HYDROcodone/APAP 7.5/325 MG 1 TAB PO PRN ×2 (01:27→21:28)
[2018-02-08 04:00] VITALS: BP 99/58
[2018-02-08 04:12] LABS: BASOPHILS # (AUTO) 0.1 K/uL (0.00-0.22); BASOPHILS % (AUTO) 1.2 % (0.0-2.0); EOSINOPHILS # (AUTO) 0.4 K/uL (0-0.4); HEMATOCRIT 43.7 % (36-52); HEMOGLOBIN 14.8 g/dL (12.0-18.0); LYMPHOCYTES # (AUTO) 1.7 K/uL (2.0-11.5); LYMPHOCYTES % (AUTO) 21.7 % (20.5-51.1); MEAN CORPUSCULAR HEMOGLOBIN 29 pg (27-31); MEAN CORPUSCULAR HGB CONC 34 g/dL (33-37); MEAN CORPUSCULAR VOLUME 86.3 fL (80-94); MONOCYTES # (AUTO) 0.8 K/uL (0.8-1.0); MONOCYTES % (AUTO) 10.6 % (1.7-9.3); NEUTROPHILS # (AUTO) 4.7 K/uL (1.8-7.7); NEUTROPHILS % (AUTO) 61.5 % (42.2-75.2); PLATELET COUNT (AUTO) 206 K/uL (140-450); RED BLOOD CELL COUNT(AUTO) 5.07 MIL/uL (4.20-6.10); RED CELL DISTRIBUTION WIDTH 13.5 % (11.6-13.7); WHITE BLOOD COUNT (AUTO) 7.7 K/uL (4.8-10.8)
[2018-02-08 04:19] LABS: ANION GAP 13.1 (8-16); CARBON DIOXIDE 24.1 mmol/L (21-32); POTASSIUM 3.2 mmol/L (3.5-5.1)
[2018-02-08 04:23] LABS: MAGNESIUM 1.9 mg/dL (1.8-2.4); PHOSPHORUS 3.1 mg/dL (2.5-4.9)
[2018-02-08] MEDS: BLOOD GLUCOSE MONITORING 1 DEV DEV FS SCH ×4 (06:12→20:43)
[2018-02-08 08:00] VITALS: BP 118/53
[2018-02-08] MEDS: ASPIRIN 81 MG TAB.CHEW PO SCH (08:21)
[2018-02-08] MEDS: metFORMIN 500 MG TAB PO SCH ×2 (08:22→17:31)
[2018-02-08] MEDS: DOCUSATE SODIUM 100 MG GELCAP PO SCH ×2 (08:22→20:36)
[2018-02-08] MEDS: METOPROLOL 25 MG TAB PO SCH ×2 (08:22→20:37)
[2018-02-08] MEDS: LACTOBACILLUS RHAMNOSUS GG 1 EACH CAP PO SCH (08:23)
[2018-02-08] MEDS: AMOXICILLIN 500 MG CAP PO SCH ×2 (08:32→20:37)
[2018-02-08] MEDS: HYDROCHLOROTHIAZIDE 25 MG TAB PO SCH (08:38)
[2018-02-08] MEDS: LOSARTAN 50 MG TAB PO SCH (08:38)
[2018-02-08] MEDS ORDERED: LISINOPRIL 5 MG TAB PO SCH (09:00)
[2018-02-08] MEDS: NACL 0.9% 1,000 ML IV SCH (09:23)
[2018-02-08] MEDS ORDERED: SUMAtriptan 25 MG TAB PO SCH (11:30)
[2018-02-08] MEDS ORDERED: CYCLOBENZAPRINE 10 MG TAB PO SCH (11:30)
[2018-02-08] MEDS: INSULIN LISPRO SLIDING SCALE 100 UNITS/ML VIAL SUBQ PRN ×3 (11:59→20:41)
[2018-02-08 12:00] VITALS: BP 116/81
[2018-02-08] MEDS ORDERED: guaiFENesin 20 MG/ML UDC PO PRN (12:25)
[2018-02-08] MEDS ORDERED: LACTOBACILLUS RHAMNOSUS GG 1 EACH CAP PO SCH (12:25)
[2018-02-08] MEDS ORDERED: CALCIUM CARB/VIT-D 500 MG/200 IU 1 TAB PO SCH (13:02)
[2018-02-08] MEDS ORDERED: POTASSIUM CHLORIDE 20% 40 MEQ/15 ML UDC PO SCH (13:30)
[2018-02-08] MEDS ORDERED: SIMETHICONE 80 MG TAB.CHEW PO SCH (13:30)
[2018-02-08] MEDS: CYCLOBENZAPRINE 10 MG TAB PO SCH ×2 (14:01→17:33)
[2018-02-08] MEDS: FLUTICASONE NASAL 50 MCG/ACTUATION 16 GM BTL NS SCH (14:02)
[2018-02-08 16:19] VITALS: BP 129/87
[2018-02-08 20:00] VITALS: BP 124/83
[2018-02-08] MEDS ORDERED: ZOLPIDEM 5 MG TAB PO PRN (20:05)
[2018-02-08] MEDS ORDERED: ATORVASTATIN 20 MG TAB PO SCH (21:00)
[2018-02-09] VITALS: BP 118/65
[2018-02-09 04:00] VITALS: BP 103/56
[2018-02-09] MEDS: BLOOD GLUCOSE MONITORING 1 DEV DEV FS SCH ×2 (06:06→12:28)
[2018-02-09] MEDS: INSULIN LISPRO SLIDING SCALE 100 UNITS/ML VIAL SUBQ PRN ×2 (06:06→12:32)
[2018-02-09] MEDS ORDERED: PANTOPRAZOLE 40 MG TABEC PO SCH (06:30)
[2018-02-09 08:00] VITALS: BP 111/71
[2018-02-09 08:24] LABS: ANION GAP 13.8 (8-16); CARBON DIOXIDE 22.1 mmol/L (21-32); CREATININE 0.8 mg/dL (0.7-1.3); POTASSIUM 3.9 mmol/L (3.5-5.1)
[2018-02-09 08:27] LABS: BASOPHILS % (AUTO) 0.5 % (0.0-2.0); EOSINOPHILS # (AUTO) 0.3 K/uL (0-0.4); EOSINOPHILS % (AUTO) 4.6 % (0.0-4.0); HEMATOCRIT 45.1 % (36-52); HEMOGLOBIN 15.2 g/dL (12.0-18.0); LYMPHOCYTES # (AUTO) 1.2 K/uL (2.0-11.5); LYMPHOCYTES % (AUTO) 20.5 % (20.5-51.1); MEAN CORPUSCULAR HEMOGLOBIN 29 pg (27-31); MEAN CORPUSCULAR HGB CONC 34 g/dL (33-37); MEAN CORPUSCULAR VOLUME 86.2 fL (80-94); MONOCYTES # (AUTO) 0.5 K/uL (0.8-1.0); MONOCYTES % (AUTO) 9.1 % (1.7-9.3); NEUTROPHILS # (AUTO) 3.9 K/uL (1.8-7.7); NEUTROPHILS % (AUTO) 65.3 % (42.2-75.2); PLATELET COUNT (AUTO) 203 K/uL (140-450); RED BLOOD CELL COUNT(AUTO) 5.23 MIL/uL (4.20-6.10); RED CELL DISTRIBUTION WIDTH 14.5 % (11.6-13.7); WHITE BLOOD COUNT (AUTO) 5.9 K/uL (4.8-10.8)
[2018-02-09] MEDS: AMOXICILLIN 500 MG CAP PO SCH (08:43)
[2018-02-09] MEDS: ASPIRIN 81 MG TAB.CHEW PO SCH (08:44)
[2018-02-09] MEDS: DOCUSATE SODIUM 100 MG GELCAP PO SCH (08:44)
[2018-02-09] MEDS: LACTOBACILLUS RHAMNOSUS GG 1 EACH CAP PO SCH (08:45)
[2018-02-09] MEDS: LOSARTAN 50 MG TAB PO SCH (08:45)
[2018-02-09] MEDS: CYCLOBENZAPRINE 10 MG TAB PO SCH ×2 (08:45→13:00)
[2018-02-09] MEDS: METOPROLOL 25 MG TAB PO SCH (08:46)
[2018-02-09] MEDS: HYDROCHLOROTHIAZIDE 25 MG TAB PO SCH (08:47)
[2018-02-09] MEDS: FLUTICASONE NASAL 50 MCG/ACTUATION 16 GM BTL NS SCH (08:48)
[2018-02-09] MEDS: metFORMIN 500 MG TAB PO SCH (08:49)
[2018-02-09] MEDS ORDERED: CALCIUM CARB/VIT-D 500 MG/200 IU 1 TAB PO SCH (09:00)
[2018-02-09] MEDS ORDERED: LACT10CA PO (09:21)
[2018-02-09] MEDS ORDERED: FLONAS NS (09:21)
[2018-02-09] MEDS ORDERED: ASPI81CT95 PO (09:21)
[2018-02-09] MEDS ORDERED: CALC-846 PO (09:21)
[2018-02-09] MEDS ORDERED: METO25TE2 PO (09:21)
[2018-02-09] MEDS ORDERED: INSU100S22 SUBQ (09:21)
[2018-02-09] MEDS ORDERED: ROB PO (09:21)
[2018-02-09] MEDS ORDERED: DOCU-299 PO (09:21)
[2018-02-09] MEDS ORDERED: FENO160T9 PO (09:21)
[2018-02-09] MEDS ORDERED: AMOX500C25 PO (09:21)
[2018-02-09] MEDS ORDERED: ZOLPIDEM 5 MG TAB PO PRN (11:05)
[2018-02-09 12:00] VITALS: BP 124/89
== END 2018-02-09 13:00 | disposition home or self-care (01) | DRG 420 ==
LOC: MED 20:13 → MTU 21:38
PROVIDERS: ADMIT Family Medicine; ATTEND Family Medicine
DX: E11.65 Type 2 diabetes mellitus with hyperglycemia (principal); N17.0 Acute kidney failure with tubular necrosis; D68.59 Other primary thrombophilia; E11.69 Type 2 diabetes mellitus with other specified complication; E86.0 Dehydration; M94.0 Chondrocostal junction syndrome [Tietze]; I10 Essential (primary) hypertension; R74.0 Nonspecific elevation of levels of transaminase and lactic acid dehydrogenase [LDH]; J32.9 Chronic sinusitis, unspecified; K76.0 Fatty (change of) liver, not elsewhere classified; E78.1 Pure hyperglyceridemia; H66.93 Otitis media, unspecified, bilateral; G44.209 Tension-type headache, unspecified, not intractable; E78.5 Hyperlipidemia, unspecified; Z87.442 Personal history of urinary calculi; Z79.84 Long term (current) use of oral hypoglycemic drugs
CPT/HCPCS: 36415; 70486; 71045; 74018; 76705; 80048; 80053; 80305; 81001; 82009; 82150; 82948; 83036; 83690; 83735; 83880; 84100; 84439; 84443; 84484; 85025; 85610; 85730; 87081; 93005; 93925; 93970; 96361; 96374; 99285; J1815; J2270; J7030; Q0092

== ENCOUNTER 2018-02-11 23:32 | Emergency (ER) | payer OTHER ==
[~2018-02-11] VITALS: Ht 162.6 cm; Wt 78.0 kg
[~2018-02-11 23:32] MED LIST changes: +AMOX500C25 PO; +ASPI81CT95 PO; +CALC-846 PO; +DOCU-299 PO; +FENO160T9 PO; +FLONAS NS; +INSU100S22 SUBQ; +LACT10CA PO; +METO25TE2 PO; +ROB PO
[2018-02-11 23:41] VITALS: BP 113/72
--- NOTE | 2018-02-11 23:41 | NUR ---
PATIENT AMBULATED TO ER BED 2.
--- NOTE | 2018-02-11 23:45 | NUR ---
58/M CAME IN W C/O 08/18 HEADACHE X 2 DAYS. PT STATES " I WAS HERE FOR HIGH BLOOD SUGAR AND THE DISCHARGED ME AND MY HEAD HAS BEEN HURTING SINCE" . REPORTS BS IS HIGH, CURRENT BS AT 400. DENIES N/V/D, DENIES VISUAL DISTURBANCES. PMH: HTN,HLD, DM
[2018-02-12] MEDS ORDERED: DIAZEPAM 5 MG TAB PO ONE (00:20)
[2018-02-12] MEDS ORDERED: KETOROLAC 30 MG/ML VIAL IM ONE (00:20)
[2018-02-12 00:47] LABS: ANION GAP 15.6 (8-16); CARBON DIOXIDE 21.7 mmol/L (21-32); POTASSIUM 3.3 mmol/L (3.5-5.1)
[2018-02-12 00:48] LABS: CREATININE 1.5 mg/dL (0.7-1.3)
[2018-02-12] MEDS ORDERED: INSULIN REGULAR, HUMAN 100 UNIT/ML VIAL SUBQ ONE (01:20)
[2018-02-12] MEDS ORDERED: POTASSIUM CHLORIDE 10 MEQ TABER PO ONE (01:20)
--- NOTE | 2018-02-12 02:05 | NUR ---
Patient discharged with v/s stable. Written and verbal after care instructions given and explained but pt refuse to take DC papers and sign. Patient verbalized understanding. Ambulatory with steady gait. All questions addressed prior to discharge. Advised to follow up with PMD.
[2018-02-12 02:10] VITALS: BP 128/76
== END 2018-02-12 02:05 | disposition home or self-care (01) ==
LOC: MED 23:32
DX: E11.65 Type 2 diabetes mellitus with hyperglycemia (principal); R51 Headache; I10 Essential (primary) hypertension
CPT/HCPCS: 36415; 80048; 82948; 96372; 99283; J1815; J1885

== ENCOUNTER 2018-06-07 04:40 | Inpatient (IN) | payer OTHER ==
[~2018-06-07] VITALS: Ht 162.6 cm; Wt 74.8 kg
[~2018-06-07 04:40] MED LIST changes: -AMOX500C25 PO; +GLU500 PO; -LACT10CA PO; -METF500T PO; +METH500T18 PO; -ROB PO
[2018-06-07 04:46] VITALS: BP 128/82
--- NOTE | 2018-06-07 04:46 | NUR ---
to bed # 5 ambulatory ,report given to Elena Siddiqui
--- NOTE | 2018-06-07 04:48 | NUR ---
PT TAKEN TO BED 12 Addendum: 06/07/18 at 0526 by CARLA PT TAKEN TO BED 11
--- NOTE | 2018-06-07 05:00 | NUR ---
58/M CAME IN ED, C/O 08/18 THROBBING L LOWER BACK PAIN, NONRADIATING, X2 DAYS WORSENING TODAY. PT REPORTS N/V X2, REPORTS SLIGHT CHEST DISCOMFORT. PT DENIES TRAUMA, FEVER, DIARRHEA, DYSURIA. SKIN INTACT, NO OBVIOUS ABNORMALITY NOTED, +TENDERNESS. PT REPORTS SIMILAR EPISODE WITH KIDNEY STONES IN THE PAST. PT REPORTS TAKING TRAMADOL 4 HRS AGO WITH LITTLE RELIEF. HX HTN, DM, KIDNEY STONES. RX LOSARTAN, HCTZ, METFORMIN. PLACED ON WINDOWS DESKTOP ENGINEER. ER MD MADE AWARE.
[2018-06-07] MEDS ORDERED: NACL 0.9% 1,000 ML IV ONE (05:16)
[2018-06-07] MEDS ORDERED: ONDANSETRON 4 MG/2 ML VIAL IVP ONE (05:20)
[2018-06-07] MEDS ORDERED: MORPHINE SULFATE 4 MG/ML SYR IVP ONE ×3 (05:20→09:55)
[2018-06-07] MEDS ORDERED: KETOROLAC 30 MG/ML VIAL IVP ONE (05:20)
--- NOTE | 2018-06-07 05:50 | NUR ---
PT TAKEN TO CT
--- NOTE | 2018-06-07 06:09 | NUR ---
PT RETURN FROM CT
--- NOTE | 2018-06-07 06:21 | NUR ---
PT RESTING IN BED, PT REPORTS 7/10 PAIN AT THIS TIME, VSS, ALL NEEDS MET.
[2018-06-07 06:33] LABS: BASOPHILS % (AUTO) 0.7 % (0.0-2.0); EOSINOPHILS # (AUTO) 0.2 K/uL (0-0.4); EOSINOPHILS % (AUTO) 3.5 % (0.0-4.0); HEMATOCRIT 47.6 % (36-52); HEMOGLOBIN 15.9 g/dL (12.0-18.0); LYMPHOCYTES # (AUTO) 1.3 K/uL (2.0-11.5); LYMPHOCYTES % (AUTO) 20.7 % (20.5-51.1); MEAN CORPUSCULAR HEMOGLOBIN 29 pg (27-31); MEAN CORPUSCULAR HGB CONC 33 g/dL (33-37); MEAN CORPUSCULAR VOLUME 86.6 fL (80-94); MONOCYTES # (AUTO) 0.7 K/uL (0.8-1.0); MONOCYTES % (AUTO) 11.3 % (1.7-9.3); NEUTROPHILS # (AUTO) 4.1 K/uL (1.8-7.7); NEUTROPHILS % (AUTO) 63.8 % (42.2-75.2); PLATELET COUNT (AUTO) 238 K/uL (140-450); RED CELL DISTRIBUTION WIDTH 14.4 % (11.6-13.7); WHITE BLOOD COUNT (AUTO) 6.4 K/uL (4.8-10.8)
[2018-06-07 06:40] LABS: APPEARANCE,URINE CLEAR (CLEAR); BILIRUBIN,URINE NEGATIVE (NEGATIVE); BLOOD, URINE NEGATIVE (NEGATIVE); COLOR,URINE YELLOW (YELLOW); LEUKOCYTE ESTERASE ,URINE NEGATIVE (NEGATIVE); NITRITE, URINE NEGATIVE (NEGATIVE); PH,URINE 6.5 (5.0-9.0); UGLUCOSE 1+ (NEGATIVE)
[2018-06-07 06:57] LABS: ALBUMIN 3.5 g/dL (3.4-5.0); ANION GAP 13.3 (8-16); CARBON DIOXIDE 26.8 mmol/L (21-32); CREATININE 0.9 mg/dL (0.7-1.3); POTASSIUM 4.1 mmol/L (3.5-5.1); TOTAL BILIRUBIN 0.6 mg/dL (0.0-1.0)
--- NOTE | 2018-06-07 07:20 | NUR ---
Pt report given to HONORIO KAMARA. Transfer of care at this time.
--- NOTE | 2018-06-07 07:25 | NUR ---
PT. RESTING IN BED, RR EVEN AND UNLABORED. PT. C/O 10/10 L FLANK PAIN THAT IS DESCRIBED SHARP. ER NOTIFIED. WILL CONTINUE TO MONITOR.
--- NOTE | 2018-06-07 07:36 | NUR ---
DR RAYMUNDO IN ROOM FOR RE-EXAM.
--- NOTE | 2018-06-07 07:45 | NUR ---
GOT REPORT FROM BERNARDA OLMEDO
[2018-06-07 08:26] LABS: RBC,URINE NONE SEEN /HPF (0-5); WBC,URINE 0-5 (RARE) /HPF (0-5)
--- NOTE | 2018-06-07 09:00 | NUR ---
PT RESTING IN BED
[2018-06-07] MEDS ORDERED: metroNIDAZOLE 500 MG/NS PREMIX 100 ML IV ONE (09:55)
[2018-06-07] MEDS ORDERED: LEVOFLOXACIN 500 MG/D5W PREMIX 100 ML IV ONE (09:55)
--- NOTE | 2018-06-07 10:40 | NUR ---
LAB AT BEDSIDE
[2018-06-07] MEDS ORDERED: NACL 0.9% 1,000 ML IV SCH (11:33)
[2018-06-07] MEDS ORDERED: ONDANSETRON 4 MG/2 ML VIAL IM/IVP PRN (11:35)
[2018-06-07] MEDS ORDERED: ZOLPIDEM 5 MG TAB PO PRN (11:35)
[2018-06-07] MEDS ORDERED: LORazepam 2 MG/ML VIAL IM/IVP PRN (11:35)
[2018-06-07] MEDS ORDERED: DOCUSATE SODIUM 100 MG GELCAP PO PRN (11:35)
[2018-06-07] MEDS ORDERED: ACETAMINOPHEN 325 MG TAB PO PRN (11:35)
[2018-06-07] MEDS ORDERED: HYDROcodone/APAP 5/325 MG 1 TAB TAB PO PRN (11:35)
[2018-06-07] MEDS ORDERED: DEXT 5% / NACL 0.45% 1,000 ML IV ONE (12:15)
--- NOTE | 2018-06-07 12:25 | NUR ---
Patient will be admitted to care of dr. devries. Admited to tele floor. Will go to room 119b. Belongings list completed. Report to mariela marrufo.
[2018-06-07 12:45] VITALS: BP 116/80
--- NOTE | 2018-06-07 12:45 | NUR ---
PATIENT ARRIVED ON MST UNIT FROM ER VIA BED/GURNEY. ABLE TO AMBULATE FROM ER BED TO MST BED WITH STEADY GAIT. NO DISTRESS NOTED. ABDOMINAL PAIN ON LEFT LOWER QUADRANT WITHIN TOLERABLE AT THIS TIME. AAOX4, CALM, COOPERATIVE, SKIN COLOR APPROPRIATE TO ETHNICITY, WARM TO TOUCH. SKIN IS INTACT. LUNGS CTA ON ALL LOBES. ABDOMEN SOFT, COMPLAINS OF LEFT LOWER QUADRANT PAIN. RESPIRATIONS EVEN, UNLABORED, ON ROOM AIR. IV SITE INTACT, PATENT, STARTED IVF PER ORDERS. ORIENTED PATIENT TO ROOM AND CALL LIGHT. SAFETY MEASURES IN PLACE, CALL LIGHT WITHIN REACH. WILL CONTINUE TO MONITOR.
[2018-06-07 12:57] LABS: PROTHROMBIN TIME 10.2 secs (10.8-13.4)
[2018-06-07 12:59] LABS: BARBITURATE, URINE NEG. ng/ml (NEG <=200); CANNABINOID, URINE NEG. ng/mL (NEG <=50); COCAINE, URINE NEG. ng/mL (NEG <=300); OPIATE, URINE NEG. ng/mL (NEG <=2000); PHENCYCLIDINE SCREEN,URINE NEG. ng/mL (NEG <=25)
[2018-06-07 13:09] LABS: BENZODIAZEPINE, URINE NEG. ng/mL (NEG <=200)
[2018-06-07 13:10] LABS: CHOL/HDL RATIO 7.1 (1-4.5); PHOSPHORUS 2.4 mg/dL (2.5-4.9); THYROID STIMULATING HORMONE 0.26 uIU/mL (0.34-3.74)
[2018-06-07] MEDS: MORPHINE SULFATE 2 MG/ML SYR IVP PRN ×3 (14:21→23:35)
--- NOTE | 2018-06-07 14:24 | NUR ---
PATIENT COMPLAINS OF 7/10 ABD PAIN, MORPHINE GIVEN PER MD ORDERS. WILL CONTINUE TO MONITOR.
[2018-06-07 16:00] VITALS: BP 133/84
--- NOTE | 2018-06-07 17:09 | NUR ---
PATIENT WALKING AROUND MST HALLWAYS WITH STEADY GAIT. WILL CONTINUE TO MONITOR.
--- NOTE | 2018-06-07 18:07 | NUR ---
PATIENT COMPLAINS OF PAIN ON LEFT FOREARM IV, IV SITE REMOVED WITH MINIMAL BLOOD AND LUMEN COMPLETELY INTACT. NEW IV LINE STARTED ON LEFT HAND #22 GAUGE ON FIRST ATTEMPT. SAFETY MEASURES IN PLACE, CALL LIGHT WITHIN REACH. WILL CONTINUE TO MONITOR.
--- NOTE | 2018-06-07 19:27 | NUR ---
GAVE REPORT TO WAX MOLDER NURSE FOR CONTINUITY OF CARE. PATIENT IN STABLE CONDITION.
--- NOTE | 2018-06-07 19:28 | NUR ---
PATIENT REPORT RECEIVED FROM MORNING NURSE AT BEDSIDE. PATIENT IS AWAKE, ALERT AND ORIENTED. NO SIGNS AND SYMPTOMS OF DISTRESS NOTED. PATIENT COMPLAINS OF 8/10 ABDOMINAL PAIN. WILL MEDICATE ORDERED. IV SITE NOTED ON LEFT ARM, IV FLUID INFUSING WELL. PLAN OF CARE DISCUSSED WITH PATIENT. PATIENT VERBALIZED UNDERSTANDING. BED IN LOWEST POSITION, SIDE RAILS UP AND CALL LIGHT WITHIN REACH. WILL CONTINUE TO MONITOR
[2018-06-07 20:00] VITALS: BP 122/90
--- NOTE | 2018-06-07 20:00 | NUR ---
MEDICATION EDUCATION GIVEN. MEDICATION ADMINISTERED ORDERED. PATIENT TOLERATED WELL. WILL CONTINUE TO MONITOR
[2018-06-07] MEDS: metroNIDAZOLE 500 MG/NS PREMIX 100 ML IV SCH (20:19)
--- NOTE | 2018-06-07 21:30 | NUR ---
PATIENT KEEPS ASKING FOR FOOD. EDUCATED HIM ABOUT WHY PATIENT IS ON NPO. ALSO NOTIFIED MD. PATIENT VERBALIZED UNDERSTANDING; BUT REINFORCEMENT NEEDED.
--- NOTE | 2018-06-07 22:00 | NUR ---
PATIENT WORRIED THAT HE'S NOT TAKING HIS HOME MEDS. MADE MD AWARE.
[2018-06-07] MEDS ORDERED: INSULIN LISPRO SLIDING SCALE 100 UNITS/ML VIAL SUBQ PRN (22:15)
[2018-06-07] MEDS ORDERED: DEXTROSE 50% 50 ML SYR IVP PRN (22:15)
--- NOTE | 2018-06-07 23:05 | NUR ---
PATIENT REPORT GIVEN TO DUSTIN FOR CONTINUITY OF CARE. PATIENT IS IN STABLE CONDITION
--- NOTE | 2018-06-07 23:10 | NUR ---
RECEIVED PT FROM ISAIAH RN PT PRYDEINIG SPEAKER AAOX4 AMBULATORY IV ON LEFT ARM , ON TELMETRY SR INITIAL ASSESSMENT DONE
[2018-06-08] VITALS: BP 95/56
--- NOTE | 2018-06-08 02:13 | NUR ---
PT SLEEPING QUIET NOT DISTRESS NOTED AFTER PAIN MEDIC GIVEN ON TELEMETRY SR
[2018-06-08] MEDS: MORPHINE SULFATE 2 MG/ML SYR IVP PRN ×2 (03:33→07:01)
[2018-06-08 04:00] VITALS: BP 111/55
--- NOTE | 2018-06-08 05:00 | NUR ---
SPONGE BATN GIVEN LINEN CHANGED ON TELEMETRY SR NOT DISTRESS NOTED
[2018-06-08] MEDS: metroNIDAZOLE 500 MG/NS PREMIX 100 ML IV SCH (05:04)
[2018-06-08] MEDS: DEXT 5% / NACL 0.9% 500 ML IV SCH ×2 (05:35→10:10)
--- NOTE | 2018-06-08 06:14 | NUR ---
BLOOD SUGAR TEST 106 PT SLEEPING AT THIS TIME NOT DISTRESS NOTED
[2018-06-08 06:37] LABS: BASOPHILS # (AUTO) 0.1 K/uL (0.00-0.22); BASOPHILS % (AUTO) 1.1 % (0.0-2.0); EOSINOPHILS # (AUTO) 0.2 K/uL (0-0.4); EOSINOPHILS % (AUTO) 2.9 % (0.0-4.0); HEMATOCRIT 44.8 % (36-52); HEMOGLOBIN 14.7 g/dL (12.0-18.0); LYMPHOCYTES # (AUTO) 1.4 K/uL (2.0-11.5); LYMPHOCYTES % (AUTO) 22.3 % (20.5-51.1); MEAN CORPUSCULAR HEMOGLOBIN 29 pg (27-31); MEAN CORPUSCULAR HGB CONC 33 g/dL (33-37); MEAN CORPUSCULAR VOLUME 86.7 fL (80-94); MONOCYTES # (AUTO) 0.8 K/uL (0.8-1.0); MONOCYTES % (AUTO) 12.8 % (1.7-9.3); NEUTROPHILS # (AUTO) 3.8 K/uL (1.8-7.7); NEUTROPHILS % (AUTO) 60.9 % (42.2-75.2); PLATELET COUNT (AUTO) 218 K/uL (140-450); RED BLOOD CELL COUNT(AUTO) 5.17 MIL/uL (4.20-6.10); RED CELL DISTRIBUTION WIDTH 14.5 % (11.6-13.7); WHITE BLOOD COUNT (AUTO) 6.2 K/uL (4.8-10.8)
[2018-06-08] MEDS ORDERED: BLOOD GLUCOSE MONITORING 1 DEV DEV FS SCH (07:30)
--- NOTE | 2018-06-08 07:30 | NUR ---
RECEIVED REPORT FROM BONDERITE OPERATOR RN. PATIENT IS IN STABLE CONDITION, AAO X4. PT IS DNR. JUST RECEIVED MORPHINE. NO COMPLAINTS OF DISCOMFORT OTHER THAN PAIN. DENIES NAUSEA, VOMITING. PT IS AMBULATORY. SKIN IS INTACT. IV SITE PATENT AND RUNNING IVF PER MD ORDERS. PT INQUIRING ABOUT WHEN HE WILL BE DISCHARGED. MD WILL DISCUSS PLAN OF CARE WITH PT LATER TODAY. ALL SAFETY PRECAUTIONS IN PLACE, WILL CONTINUE TO MONITOR.
[2018-06-08 08:00] VITALS: BP 123/73
[2018-06-08] MEDS ORDERED: metFORMIN 500 MG TAB PO SCH (08:00)
[2018-06-08 08:37] LABS: MAGNESIUM 1.5 mg/dL (1.8-2.4); PHOSPHORUS 2.3 mg/dL (2.5-4.9)
[2018-06-08 08:40] LABS: ANION GAP 13.2 (8-16); CARBON DIOXIDE 26.5 mmol/L (21-32); CREATININE 0.8 mg/dL (0.7-1.3); POTASSIUM 3.7 mmol/L (3.5-5.1)
[2018-06-08] MEDS ORDERED: CALCIUM CARB/VIT-D 500 MG/200 IU 1 TAB PO SCH (09:00)
[2018-06-08] MEDS ORDERED: ASPIRIN 81 MG TAB.CHEW PO SCH (09:00)
[2018-06-08] MEDS ORDERED: LOSARTAN 50 MG TAB PO SCH (09:00)
[2018-06-08] MEDS ORDERED: METHOCARBAMOL 500 MG TAB PO SCH (09:00)
[2018-06-08] MEDS ORDERED: FLUTICASONE NASAL 50 MCG/ACTUATION 16 GM BTL NS SCH (09:00)
[2018-06-08] MEDS ORDERED: METOPROLOL SUCCINATE 50 MG TABER PO SCH (09:00)
[2018-06-08] MEDS ORDERED: HYDROCHLOROTHIAZIDE 25 MG TAB PO SCH (09:00)
[2018-06-08] MEDS ORDERED: FENOFIBRATE 48 MG TAB PO SCH (09:00)
--- NOTE | 2018-06-08 09:26 | NUR ---
SCHEDULED MEDICATION GIVEN AT THIS TIME PER MD ORDERS. PT IN STABLE CONDITION. NO COMPLAINTS OF PAIN OR DISCOMFORT.
--- NOTE | 2018-06-08 09:27 | NUR ---
PATIENT HAS BEEN SCREENED AND CATEGORIZED MODERATE NUTRITION RISK. PATIENT WILL BE SEEN WITHIN 3-5 DAYS OF ADMISSION. 06/10/18 - 06/12/[address]
--- NOTE | 2018-06-08 10:15 | NUR ---
CM NOTE RECEIVED CALL FROM KARTHIK MARADIAGA OF [facility] PH# [phone] STATING SHE IS THE ASSIGNED CM AND REQUESTING REVIEW TO BE FAXED TO [phone]. INITIAL REVIEW FAXED TO STEPHANIE [phone] PH# [phone] [place] [address]T [phone] AND TO [facility] [phone] HIREN PH# [phone].
--- NOTE | 2018-06-08 11:10 | NUR ---
DR. BENTLEY TO SEE PATIENT.
--- NOTE | 2018-06-08 11:30 | NUR ---
PT WISHES TO LEAVE AMA. SIGNED PAPER TO LEAVE AMA. PRESCRIPTIONS GIVEN TO PATIENT. DR. CASSIDY GAVE MEDICATION RECONCILIATION TEACHING. ID BANDS REMOVED. IV SITE REMOVED WITH MINIMAL BLOOD LOSS AND LUMEN COMPLETELY INTACT. ALL PERSONAL BELONGINGS ARE WITH PATIENT.
--- NOTE | 2018-06-08 11:40 | NUR ---
PT LEFT MST UNIT AMA.
[2018-06-08] MEDS ORDERED: metroNIDAZOLE 500 MG/NS PREMIX 100 ML IV SCH (12:00)
[2018-06-08] MEDS ORDERED: METPCK GT/PO (12:40)
[2018-06-08] MEDS ORDERED: AMOX-999 PO (12:40)
[2018-06-08] MEDS ORDERED: MAGN400T7 PO (12:40)
[2018-06-08] MEDS ORDERED: METR250T2 PO (12:40)
[2018-06-08] MEDS ORDERED: INSULIN LANTUS 100 UNITS/ML 10 ML VIAL SUBQ SCH (21:00)
[2018-06-08] MEDS ORDERED: POLYETHYLENE GLYCOL 17 GM/PKT PO SCH (21:00)
[2018-06-09] MEDS ORDERED: PSYLLIUM 12.2 GM/PKT PO SCH (09:00)
== END 2018-06-08 11:40 | disposition left against medical advice (07) | DRG 244 ==
LOC: MED 04:40 → MTU 12:19
PROVIDERS: ADMIT General Practice; ATTEND General Practice
DX: K57.92 Diverticulitis of intestine, part unspecified, without perforation or abscess without bleeding (principal); E11.65 Type 2 diabetes mellitus with hyperglycemia; I10 Essential (primary) hypertension; Z66 Do not resuscitate; E78.5 Hyperlipidemia, unspecified; E66.3 Overweight; E83.39 Other disorders of phosphorus metabolism; F17.210 Nicotine dependence, cigarettes, uncomplicated; K59.00 Constipation, unspecified; E05.80 Other thyrotoxicosis without thyrotoxic crisis or storm; E83.42 Hypomagnesemia; Z53.21 Procedure and treatment not carried out due to patient leaving prior to being seen by health care provider; Z68.28 Body mass index [BMI] 28.0-28.9, adult; Z87.442 Personal history of urinary calculi; Z79.82 Long term (current) use of aspirin; Z79.4 Long term (current) use of insulin; Z79.899 Other long term (current) drug therapy; Z90.49 Acquired absence of other specified parts of digestive tract; Z83.3 Family history of diabetes mellitus; Z82.49 Family history of ischemic heart disease and other diseases of the circulatory system
CPT/HCPCS: 36415; 71045; 80048; 80053; 80305; 81001; 82948; 83036; 83605; 83690; 83735; 84100; 84134; 84443; 85025; 85610; 85730; 87040; 87081; 93005; 96361; 96365; 96367; 96375; 96376; 99285; J0696; J1815; J1885; J1956; J2270; J2405; J3490; J7042; J7060; Q0092

== ENCOUNTER 2019-02-28 11:51 | Emergency (ER) | payer OTHER ==
[~2019-02-28] VITALS: Ht 160 cm; Wt 73.9 kg
[~2019-02-28 11:51] MED LIST changes: +AMOX-999 PO; +CALC-55 PO; -CALC-846 PO; +MAGN400T7 PO; +METPCK GT/PO; +METR250T2 PO
[2019-02-28 12:10] VITALS: BP 126/92
--- NOTE | 2019-02-28 12:31 | NUR ---
PT BIB SELF TO THE ED WITH THE CHIEF C/O ABDOMINAL PAIN X2 WEEKS. DENIES N/V/D. ABDOMEN SOFT, ROUND AND TENDER TO TOUCH. ACTIVE BOWEL SOUND. STATES PAIN OF 10/10 AT THIS TIME. PT ALSO REPORTS RUNNY NOSE AND ITCHY RASHES ON HANDS AND LEGS. APPLYING TOPICAL MEDICINE FOR RASHES FOR A WEEK S/P SEEN BY PCP IN CLINIC. LUNGS CLEAR. DENIES ANY OTHER PROBLEM. VSS. ER AWARE.
--- NOTE | 2019-02-28 12:34 | NUR ---
PT BEING SEEN BY ER AT THIS TIME.
[2019-02-28] MEDS ORDERED: KETOROLAC 30 MG/ML VIAL IM ONE (12:45)
--- NOTE | 2019-02-28 12:58 | NUR ---
LAB AT THE BEDSIDE.
[2019-02-28 13:09] LABS: APPEARANCE,URINE CLEAR (CLEAR); BILIRUBIN,URINE 2+ (NEGATIVE); BLOOD, URINE NEGATIVE (NEGATIVE); COLOR,URINE YELLOW (YELLOW); LEUKOCYTE ESTERASE ,URINE TRACE (NEGATIVE); NITRITE, URINE NEGATIVE (NEGATIVE); PH,URINE 7.5 (5.0-9.0); UGLUCOSE NEGATIVE (NEGATIVE)
[2019-02-28 13:17] LABS: ANION GAP 14.2 (8-16); CARBON DIOXIDE 25.1 mmol/L (21-32); CREATININE 0.9 mg/dL (0.7-1.3); POTASSIUM 4.3 mmol/L (3.5-5.1)
[2019-02-28 13:22] LABS: ALBUMIN 3.9 g/dL (3.4-5.0); TOTAL BILIRUBIN 0.7 mg/dL (0.0-1.0)
[2019-02-28 13:28] LABS: RBC,URINE 0 /HPF (0-5); WBC,URINE 0-5 /HPF (0-5)
[2019-02-28] MEDS ORDERED: metroNIDAZOLE 500 MG/NS PREMIX 100 ML IV ONE (14:00)
[2019-02-28] MEDS ORDERED: MORPHINE SULFATE 4 MG/ML SYR IVP ONE ×2 (14:00→17:20)
[2019-02-28] MEDS ORDERED: NACL 0.9% 2,000 ML IV ONE (14:00)
[2019-02-28] MEDS ORDERED: ONDANSETRON 4 MG/2 ML VIAL IVP ONE ×2 (14:00→17:20)
[2019-02-28] MEDS ORDERED: LEVOFLOXACIN 750 MG/D5W PREMIX 150 ML IV ONE (14:00)
[2019-02-28 14:16] LABS: BASOPHILS % (AUTO) 0.5 % (0.0-2.0); EOSINOPHILS % (AUTO) 0.5 % (0.0-4.0); HEMATOCRIT 49.4 % (36-52); HEMOGLOBIN 16.9 g/dL (12.0-18.0); LYMPHOCYTES # (AUTO) 1.2 K/uL (2.0-11.5); LYMPHOCYTES % (AUTO) 16.4 % (20.5-51.1); MEAN CORPUSCULAR HEMOGLOBIN 30 pg (27-31); MEAN CORPUSCULAR HGB CONC 34 g/dL (33-37); MEAN CORPUSCULAR VOLUME 87.2 fL (80-94); MONOCYTES # (AUTO) 0.5 K/uL (0.8-1.0); MONOCYTES % (AUTO) 6.2 % (1.7-9.3); NEUTROPHILS # (AUTO) 5.7 K/uL (1.8-7.7); NEUTROPHILS % (AUTO) 76.4 % (42.2-75.2); PLATELET COUNT (AUTO) 250 K/uL (140-450); RED BLOOD CELL COUNT(AUTO) 5.67 MIL/uL (4.20-6.10); RED CELL DISTRIBUTION WIDTH 14.1 % (11.6-13.7); WHITE BLOOD COUNT (AUTO) 7.4 K/uL (4.8-10.8)
--- NOTE | 2019-02-28 15:25 | NUR ---
RECEIVED CALL FROM TELECOMMUNICATIONS CONSULTANT WANDA. UPDATED PT CONDITION AND LAB RESULTS. WILL FAX ED NOTE AND FACE SHEET PER REQUEST.
--- NOTE | 2019-02-28 18:19 | NUR ---
Patient to be transferred to [facility]. Is being transferred due to higher level of care. Receiving facility has accepting physician and available space. ER physician has signed transfer form. Patient or responsible republican has agreed to transfer and signed form. Patient belongings inventoried and will be sent with patient. Copy of nursing notes, lab reports, EKG, Physicians Orders and X-rays to be sent with patient. Report called to HONORIO MORENO at receiving facility.[facility] ambulance service has arrived for transport. Report to [facility] personnel.
[2019-02-28 18:22] VITALS: BP 124/73
--- NOTE | 2019-03-04 08:53 | NUR ---
Late entry. Confirmed with RN that Flagyl IV started at 1451 and ended at 1551
== END 2019-02-28 18:20 | disposition short-term general hospital (02) ==
LOC: MED 11:51
DX: K57.92 Diverticulitis of intestine, part unspecified, without perforation or abscess without bleeding (principal); R51 Headache; E11.9 Type 2 diabetes mellitus without complications; I10 Essential (primary) hypertension; Z87.442 Personal history of urinary calculi; Z79.82 Long term (current) use of aspirin; Z79.4 Long term (current) use of insulin; Z79.899 Other long term (current) drug therapy
CPT/HCPCS: 36415; 74176; 80053; 81001; 82948; 83605; 83690; 85025; 96365; 96366; 96368; 96372; 96375; 96376; 99285; J1885; J1956; J2270; J2405; J3490; J7030

== ENCOUNTER 2019-09-04 20:59 | Emergency (ER) | payer OTHER ==
[~2019-09-04] VITALS: Ht 157.5 cm; Wt 77.1 kg
[~2019-09-04 20:59] MED LIST changes: -COZ50 PO; +LOSA50TA57 PO
[2019-09-04 21:03] VITALS: BP 128/98
--- NOTE | 2019-09-04 21:12 | NUR ---
PT AMBULATED TO LOBBY WITH VSS.
--- NOTE | 2019-09-04 21:21 | NUR ---
PT AMBULATED TO BED 7
--- NOTE | 2019-09-04 21:34 | NUR ---
59 Y/O MALE PRESENTS TO ED, C/O RIGHT KNEE PAIN 08/18. PT STATES PAIN STARTED 4 DAYS AGO; WORSENED TODAY. TOOK TYLENOL APPROXIMATELY 1800 TODAY BUT INEFFECTIVE. SWELLING AND REDNESS NOTED ON RIGHT KNEE; SCABBED WOUND. ABLE TO AMBULATE BUT WITH PAIN. PT VSS. ERMD AWARE. WILL CONTINUE TO MONITOR.
[2019-09-04] MEDS ORDERED: KETOROLAC 60 MG/2 ML VIAL IM ONE (21:55)
[2019-09-04 22:25] VITALS: BP 121/76
--- NOTE | 2019-09-04 22:25 | NUR ---
PT DISCHARGED WITH PAPERWORK. RX NORCO 5, KELFELX, MOTRIN, PREDNISONE. EDUCATED PT REGARDING MEDICATIONS AND S/E. EDUCATED PT REGARDING D/C DIAGNOSIS AND INSTRUCTIONS. PT VERBALIZED UNDERSTANDING OF TEACHING. TOLD PT TO FOLLOW UP WITH PCP AND WHEN TO RETURN TO ED. PT VSS. ALL QUESTIONS ANSWERED.
== END 2019-09-04 22:25 | disposition home or self-care (01) ==
LOC: MED 20:59
DX: L03.115 Cellulitis of right lower limb (principal); I10 Essential (primary) hypertension; E11.9 Type 2 diabetes mellitus without complications; F17.210 Nicotine dependence, cigarettes, uncomplicated; Z79.2 Long term (current) use of antibiotics; Z79.82 Long term (current) use of aspirin; Z79.899 Other long term (current) drug therapy; Z87.442 Personal history of urinary calculi; Z86.79 Personal history of other diseases of the circulatory system; Z98.890 Other specified postprocedural states
CPT/HCPCS: 96372; 99283; J1885

== ENCOUNTER 2020-01-16 08:20 | Emergency (ER) | payer OTHER ==
[~2020-01-16] VITALS: Ht 162.6 cm; Wt 63.5 kg
[2020-01-16 08:28] VITALS: BP 112/85
--- NOTE | 2020-01-16 08:31 | NUR ---
Patient ambulated to bed 2. RN evaluating patient at bedside.
--- NOTE | 2020-01-16 08:48 | NUR ---
C/O LLQ PAIN WITH BRIGHT RED BLOOD PER RECTUM X 3 DAYS ,PT AWAKE , ALERT , AFIBRILE . SOFT , NABS , DENIES N/V . HX--DM, HTN, HYPERLIPIDEMIA RX--METFORMIN, LOSARTAN, LIPITOR
--- NOTE | 2020-01-16 09:11 | NUR ---
dr vicente at bedside evaluating pt.
[2020-01-16] MEDS ORDERED: NACL 0.9% 1,000 ML IV ONE (09:15)
[2020-01-16] MEDS ORDERED: ONDANSETRON 4 MG/2 ML VIAL IVP ONE (09:15)
[2020-01-16] MEDS ORDERED: fentaNYL 0.05 MG/ML VIAL IVP ONE (09:15)
[2020-01-16 09:25] LABS: APPEARANCE,URINE CLEAR (CLEAR); BILIRUBIN,URINE 1+ (NEGATIVE); BLOOD, URINE NEGATIVE (NEGATIVE); COLOR,URINE YELLOW (YELLOW); LEUKOCYTE ESTERASE ,URINE TRACE (NEGATIVE); NITRITE, URINE NEGATIVE (NEGATIVE); UGLUCOSE NEGATIVE (NEGATIVE)
[2020-01-16 09:34] LABS: BASOPHILS # (AUTO) 0.1 K/uL (0.00-0.22); BASOPHILS % (AUTO) 0.9 % (0.0-2.0); EOSINOPHILS # (AUTO) 0.2 K/uL (0-0.4); EOSINOPHILS % (AUTO) 1.7 % (0.0-4.0); HEMATOCRIT 42.2 % (36-52); HEMOGLOBIN 13.9 g/dL (12.0-18.0); LYMPHOCYTES % (AUTO) 11.3 % (20.5-51.1); MEAN CORPUSCULAR HEMOGLOBIN 30 pg (27-31); MEAN CORPUSCULAR HGB CONC 33 g/dL (33-37); MONOCYTES # (AUTO) 0.5 K/uL (0.8-1.0); MONOCYTES % (AUTO) 5.6 % (1.7-9.3); NEUTROPHILS # (AUTO) 7.2 K/uL (1.8-7.7); NEUTROPHILS % (AUTO) 80.5 % (42.2-75.2); PLATELET COUNT (AUTO) 259 K/uL (140-450); RED BLOOD CELL COUNT(AUTO) 4.64 MIL/uL (4.20-6.10); RED CELL DISTRIBUTION WIDTH 13.5 % (11.6-13.7); WHITE BLOOD COUNT (AUTO) 8.9 K/uL (4.8-10.8)
[2020-01-16 09:38] LABS: RBC,URINE 0-5 /HPF (0-5); WBC,URINE 0-5 /HPF (0-5)
--- NOTE | 2020-01-16 09:42 | NUR ---
pt went ct scan via [facility].
--- NOTE | 2020-01-16 09:48 | NUR ---
[facility] BACK [facility] [employer]
[2020-01-16 09:51] LABS: PROTHROMBIN TIME 10.2 secs (10.8-13.4)
[2020-01-16 09:53] LABS: ALBUMIN 3.6 g/dL (3.4-5.0); ANION GAP 10.7 (8-16); CARBON DIOXIDE 27.3 mmol/L (21-32); CREATININE 1.1 mg/dL (0.6-1.3); TOTAL BILIRUBIN 0.5 mg/dL (0.0-1.0)
--- NOTE | 2020-01-16 10:22 | NUR ---
PT WENT BR TO DO NUMBER AMBULATING.
--- NOTE | 2020-01-16 10:25 | NUR ---
pt back frm br
--- NOTE | 2020-01-16 11:20 | NUR ---
DR CASTAÑEDA AT BEDSIDE REVALUATING PT.
[2020-01-16 11:31] VITALS: BP 110/80
--- NOTE | 2020-01-16 11:31 | NUR ---
Patient discharged with v/s stable. Written and verbal after care instructions given and explained regarding diverticulitis Patient alert, oriented and verbalized understanding of instructions. Ambulatory with steady gait. All questions addressed prior to discharge. ID band removed. Patient advised to follow up with PMD. Rx of bactrim, flagyl and norco given. Patient educated on indication of medication including possible reaction and side effects. Opportunity to ask questions provided and answered.
== END 2020-01-16 11:31 | disposition home or self-care (01) ==
LOC: MED 08:20
DX: K57.92 Diverticulitis of intestine, part unspecified, without perforation or abscess without bleeding (principal); I10 Essential (primary) hypertension; E11.9 Type 2 diabetes mellitus without complications; N28.9 Disorder of kidney and ureter, unspecified; F17.200 Nicotine dependence, unspecified, uncomplicated; Z79.4 Long term (current) use of insulin; Z79.899 Other long term (current) drug therapy; Z98.890 Other specified postprocedural states; Z87.442 Personal history of urinary calculi
CPT/HCPCS: 36415; 74176; 80053; 81001; 81002; 83605; 85025; 85610; 85730; 87040; 96361; 96374; 96375; 99284; J2405; J3010; J7030

== ENCOUNTER 2021-12-29 18:34 | Emergency (ER) | payer OTHER ==
[~2021-12-29] VITALS: Ht 157.5 cm; Wt 79.4 kg
[~2021-12-29 18:34] MED LIST changes: +HYDR-4004 PO; +METH-1866 PO; -METH500T18 PO; +METR-520 PO; -METR250T2 PO; -ORE25 PO
[2021-12-29 18:37] VITALS: BP 154/97
--- NOTE | 2021-12-29 18:44 | NUR ---
CODE BRAIN ACTIVATED
--- NOTE | 2021-12-29 18:44 | NUR ---
TO ER BED 2
--- NOTE | 2021-12-29 18:45 | NUR ---
PATIENT TRANSPORTED TO CT ACCOMPANIED BY AEROSPACE TECHNICIAN, PRIMARY/SECONDARY RN. TELEMETRY BOX ATTACHED FOR TRANSPORT.
--- NOTE | 2021-12-29 19:00 | NUR ---
61 y/o M BIB family c/o left-sided facial droop, L upper extremity weakness, loss of sensation to left upper and left lower extremity, L sided facial numbness, L sided neck pain/headache. Pt A&Ox4, ambulatory, reports 10/10 headache. Per family, patient last seen normal at 11PM last night. Patient reports left sided facial droop that worsened throughout the day. Denies chest pain, SOB, fever, chills, meds prior to arrival. Pt placed onto monitoring engineer showing VSS; BP 132/87. SpO2 99% on room air. Bed locked in lowest position, side rails x1, family at bedside. PMH: DM, HTN Meds: metformin NKDA
--- NOTE | 2021-12-29 19:00 | NUR ---
Note undone in [facility] - 12/29/21 at 1918 by MJ 61 y/o M BIB family c/o left-sided facial droop, L upper extremity weakness, loss of sensation to left upper and left lower extremity, L sided facial numbness, L sided neck pain/headache. Pt A&Ox4, ambulatory, reports 08/18 headache. Per family, patient last seen normal at 2AM this morning. Patient reports left sided facial droop that worsened throughout the day. Denies chest pain, SOB, fever, chills, meds prior to arrival. Pt placed onto erp manager showing VSS; BP 132/87. SpO2 99% on room air. Bed locked in lowest position, side rails x1, family at bedside. PMH: DM, HTN Meds: metformin NKDA Addendum: 12/29/21 at 1917 by MJ Amendment undone in [facility] - 12/29/21 at 1918 by MJ Shah* Last known well: 11PM 12/28/2021
--- NOTE | 2021-12-29 19:00 | NUR ---
Dr. Witt is evaluating patient at bedside
--- NOTE | 2021-12-29 19:07 | NUR ---
Zhen renteria in [facility] - 12/29/21 at 1921 by MJ JOSUE 4
--- NOTE | 2021-12-29 19:10 | NUR ---
CT consent form signed
--- NOTE | 2021-12-29 19:11 | NUR ---
NIHSS 4 Facial palsy +2 L sided partial paralysis Limb ataxia +1 (LLE) Sensory +1 Left-sided arms/legs
--- NOTE | 2021-12-29 19:25 | NUR ---
Report and transfer of care endorsed to HONORIO Leonard.
[2021-12-29 19:41] LABS: BASOPHILS % (AUTO) 0.6 % (0.0-2.0); EOSINOPHILS # (AUTO) 0.1 K/uL (0-0.4); HEMATOCRIT 40.6 % (36-52); HEMOGLOBIN 13.7 g/dL (12.0-18.0); LYMPHOCYTES # (AUTO) 1.7 K/uL (2.0-11.5); LYMPHOCYTES % (AUTO) 27.8 % (20.5-51.1); MEAN CORPUSCULAR HEMOGLOBIN 30 pg (27-31); MEAN CORPUSCULAR HGB CONC 34 g/dL (33-37); MEAN CORPUSCULAR VOLUME 87.5 fL (80-94); MONOCYTES # (AUTO) 0.7 K/uL (0.8-1.0); MONOCYTES % (AUTO) 10.5 % (1.7-9.3); NEUTROPHILS # (AUTO) 3.7 K/uL (1.8-7.7); NEUTROPHILS % (AUTO) 59.1 % (42.2-75.2); PLATELET COUNT (AUTO) 336 K/uL (140-450); RED BLOOD CELL COUNT(AUTO) 4.64 MIL/uL (4.20-6.10); RED CELL DISTRIBUTION WIDTH 13.8 % (11.6-13.7); WHITE BLOOD COUNT (AUTO) 6.2 K/uL (4.8-10.8)
[2021-12-29 20:03] LABS: PROTHROMBIN TIME 9.9 secs (10.8-13.4)
[2021-12-29 20:05] LABS: ALBUMIN 3.9 g/dL (3.4-5.0); ANION GAP 12.6 (8-16); CARBON DIOXIDE 26.4 mmol/L (21-32); CREATININE 1.4 mg/dL (0.6-1.3); TOTAL BILIRUBIN 0.2 mg/dL (0.0-1.0)
--- NOTE | 2021-12-29 20:05 | NUR ---
CALLED [facility] AND GAVE REPORT TO , SAMEER OLMEDO/CASANDRA.
--- NOTE | 2021-12-29 20:06 | NUR ---
[facility] TRANSPORT AT BEDSIDE
--- NOTE | 2021-12-29 20:10 | NUR ---
Patient to be transferred to [facility]. Is being transferred due to HIGHER LEVEL OF CARE. Receiving facility has accepting physician and available space. ER physician has signed transfer form. Patient or responsible constitution party has agreed to transfer and signed form. Patient belongings inventoried and will be sent with patient. Copy of nursing notes, lab reports, EKG, Physicians Orders and X-rays to be sent with patient. Report called to HONORIO ESTRELLA/CASANDRA at receiving facility. [facility] ambulance service has been called for transfer. ETA to [facility] is 15 minutes. VSS, A/Ox4, ambulatory, unlabored breathing, and calm demeanor.
--- NOTE | 2021-12-29 20:15 | NUR ---
PT TAKEN BY STEPH BOONE TO [facility] ER
[2021-12-29 20:17] VITALS: BP 144/88
== END 2021-12-29 20:15 | disposition short-term general hospital (02) ==
LOC: MED 18:34
DX: G81.94 Hemiplegia, unspecified affecting left nondominant side (principal); R20.0 Anesthesia of skin; R29.810 Facial weakness; E11.9 Type 2 diabetes mellitus without complications; I10 Essential (primary) hypertension; F17.210 Nicotine dependence, cigarettes, uncomplicated; Z87.442 Personal history of urinary calculi; Z79.4 Long term (current) use of insulin; Z79.899 Other long term (current) drug therapy; Z79.82 Long term (current) use of aspirin
CPT/HCPCS: 36415; 70450; 71045; 80053; 84484; 85025; 85610; 85730; 86886; 86900; 86901; 93005; 99291

== ENCOUNTER 2022-04-21 22:22 | Observation (INO) | payer OTHER ==
[~2022-04-21] VITALS: Ht 162.6 cm; Wt 73.9 kg
[2022-04-21 22:50] VITALS: BP 124/78
--- NOTE | 2022-04-21 22:57 | NUR ---
Dr. Thomas examining patient.
[2022-04-21 23:19] LABS: BASOPHILS % (AUTO) 0.4 % (0.0-2.0); EOSINOPHILS # (AUTO) 0.2 K/uL (0-0.4); EOSINOPHILS % (AUTO) 2.7 % (0.0-4.0); HEMATOCRIT 45.6 % (36-52); LYMPHOCYTES # (AUTO) 1.5 K/uL (2.0-11.5); LYMPHOCYTES % (AUTO) 19.5 % (20.5-51.1); MEAN CORPUSCULAR HEMOGLOBIN 28 pg (27-31); MEAN CORPUSCULAR HGB CONC 33 g/dL (33-37); MEAN CORPUSCULAR VOLUME 85.4 fL (80-94); MONOCYTES # (AUTO) 0.6 K/uL (0.8-1.0); MONOCYTES % (AUTO) 8.4 % (1.7-9.3); NEUTROPHILS # (AUTO) 5.3 K/uL (1.8-7.7); PLATELET COUNT (AUTO) 319 K/uL (140-450); RED BLOOD CELL COUNT(AUTO) 5.33 MIL/uL (4.20-6.10); RED CELL DISTRIBUTION WIDTH 14.2 % (11.6-13.7); WHITE BLOOD COUNT (AUTO) 7.7 K/uL (4.8-10.8)
[2022-04-21 23:30] LABS: APPEARANCE,URINE CLEAR (CLEAR); BILIRUBIN,URINE NEGATIVE (NEGATIVE); BLOOD, URINE NEGATIVE (NEGATIVE); COLOR,URINE YELLOW (YELLOW); LEUKOCYTE ESTERASE ,URINE TRACE (NEGATIVE); NITRITE, URINE NEGATIVE (NEGATIVE); UGLUCOSE NEGATIVE (NEGATIVE)
[2022-04-21 23:31] LABS: PROTHROMBIN TIME 9.8 secs (10.8-13.4)
[2022-04-21 23:36] LABS: RBC,URINE 0-5 /HPF (0-5)
[2022-04-21 23:38] LABS: ALBUMIN 3.8 g/dL (3.4-5.0); ANION GAP 8.6 (8-16); ASPARTATE AMINOTRANSFERASE 19 U/L (15-37); CARBON DIOXIDE 28.8 mmol/L (21-32); CHLORIDE 104 mmol/L (98-107); GFR ARICAN-AMERICAN 97 mL/min (>90); GLUCOSE 109 mg/dL (74-106); POTASSIUM 4.4 mmol/L (3.5-5.1); SODIUM SERUM 137 mmol/L (136-145); TOTAL BILIRUBIN 0.4 mg/dL (0.0-1.0); UREA NITROGEN, BLOOD 15 mg/dL (7-18)
--- NOTE | 2022-04-21 23:56 | NUR ---
patient to CT via [facility]
[2022-04-22] MEDS ORDERED: ONDANSETRON 4 MG/2 ML VIAL IVP ONE (00:25)
[2022-04-22] MEDS ORDERED: MORPHINE SULFATE 4 MG/ML SYR IVP ONE (00:25)
[2022-04-22] MEDS ORDERED: cefTRIAXone 1,000 MG VIAL ONE (02:09)
[2022-04-22] MEDS ORDERED: NACL 0.9% 1,000 ML IV ONE (03:15)
[2022-04-22] MEDS ORDERED: KETOROLAC 30 MG/ML VIAL IVP ONE (03:15)
[2022-04-22] MEDS ORDERED: ASPIRIN 325 MG TAB PO ONE (03:15)
--- NOTE | 2022-04-22 03:15 | NUR ---
SWABBED PATIENT FOR ANDRAE AND SENT TO LAB
[2022-04-22] MEDS ORDERED: LOSA100T1 PO (03:48)
[2022-04-22] MEDS ORDERED: OMEP40EC23 PO (03:48)
[2022-04-22] MEDS ORDERED: METF-352 PO (03:48)
--- NOTE | 2022-04-22 04:46 | NUR ---
SPOKE WITH [employer] SHANKAR REGARDING PATIENT INFORMATION.
--- NOTE | 2022-04-22 06:05 | NUR ---
Patient appears to be resting comfortably in bed- low fowlers. Vital Signs within normal limits. Respirations even and unlabored- no s/s of respiratory distress. Patient IV infusing well through to Right AC. Safety measures are in place, attached to telemetry monitor and will continue to monitor patient.
[2022-04-22] MEDS ORDERED: ACETAMINOPHEN 325 MG TAB PO PRN (06:45)
[2022-04-22] MEDS ORDERED: POTASSIUM CHLORIDE 10 MEQ TABER PO PRN (06:45)
[2022-04-22] MEDS ORDERED: MAG SULF 2000 MG/WATER PREMIX 50 ML IV PRN (06:45)
[2022-04-22] MEDS ORDERED: ONDANSETRON 4 MG/2 ML VIAL IVP PRN (06:45)
[2022-04-22] MEDS ORDERED: MAGNESIUM OXIDE 400 MG TAB PO PRN (06:45)
[2022-04-22] MEDS ORDERED: HYDROcodone/APAP 5/325 MG 1 TAB TAB PO PRN (06:45)
[2022-04-22] MEDS ORDERED: KCL 20 MEQ/WATER INJ PREMIX 200 ML IV PRN (06:45)
[2022-04-22] MEDS ORDERED: MORPHINE SULFATE 4 MG/ML SYR IVP PRN (06:45)
--- NOTE | 2022-04-22 07:15 | NUR ---
Pt report given to Alisia OLMEDO. Transfer of care at this time.
[2022-04-22 09:30] VITALS: BP 134/54
--- NOTE | 2022-04-22 10:08 | NUR ---
PATIENT HAS BEEN SCREENED AND CATEGORIZED LOW NUTRITION RISK. PATIENT WILL BE SEEN WITHIN 7 DAYS OF ADMISSION. 04/28/[address]
--- NOTE | 2022-04-22 10:21 | NUR ---
PT AMBULATED TO THE RR W/ STEADY GAIT.
--- NOTE | 2022-04-22 11:20 | NUR ---
PT STATES HE DOES NOT WISH TO GET ADMITTED TO THE HOSPITA AND WISHES TO GO HOME [facility]. PT STATES HE IS FEELING MUCH BETTER. ADMITTING PHYSICIAN PAGED. AT PT BEDSIDE.
--- NOTE | 2022-04-22 11:34 | NUR ---
SPOKE WITH DR. PLATA. ASKED IF PATIENT COULD WAIT UNTIL APPROX. 1300. PATIENT STATES HE DOES NOT WANT TO WAIT ANY LONGER AND DECIDED TO LEAVE. PATIENT DOES NOT WISH TO PROCEED WITH MEDICAL CARE RECOMMEND BY . PATIENT GIVEN INFORMATION RELATED TO POSSIBLE COMPLICATIONS UP TO AND INCLUDING , WHICH COULD OCCUR A RESULT OF LEAVING HOSPITAL AT THIS TIME. PATIENT VERBALIZES UNDERSTANDING OF RISKS INVOLVED LEAVING AGAINST MEDICAL ADVICE. PATIENT HAS SIGNED AMA FORM.
== END 2022-04-22 11:34 | disposition left against medical advice (07) ==
LOC: MED 22:22 → MTU 04-22 06:47
PROVIDERS: ADMIT Internal Medicine; ATTEND Internal Medicine
DX: R51.9 Headache, unspecified (principal); Z20.822 Contact with and (suspected) exposure to COVID-19; N39.0 Urinary tract infection, site not specified; I10 Essential (primary) hypertension; E11.9 Type 2 diabetes mellitus without complications; R53.1 Weakness; Z53.21 Procedure and treatment not carried out due to patient leaving prior to being seen by health care provider; Z79.899 Other long term (current) drug therapy
CPT/HCPCS: 36415; 70450; 70496; 70498; 71045; 80053; 81001; 82948; 84484; 85025; 85610; 85730; 87040; 87086; 87426; 93005; 96361; 96365; 96375; 99285; G0378; J0696; J1885; J2270; J2405; Q0092; Q9967

== ENCOUNTER 2022-06-02 20:34 | Emergency (ER) | payer OTHER ==
[~2022-06-02] VITALS: Ht 162.6 cm; Wt 71.0 kg
[~2022-06-02 20:34] MED LIST changes: -AMOX-999 PO; -ASPI81CT95 PO; -CALC-55 PO; -DOCU-299 PO; -FENO160T9 PO; -FLONAS NS; -GLU500 PO; -HYDR-4004 PO; -INSU100S22 SUBQ; +LOSA100T1 PO; -LOSA50TA57 PO; -MAGN400T7 PO; +METF-352 PO; -METH-1866 PO; -METO25TE2 PO; -METPCK GT/PO; -METR-520 PO; +OMEP40EC23 PO
[2022-06-02 20:56] VITALS: BP 122/67
--- NOTE | 2022-06-02 20:59 | NUR ---
URINE COLLECTED , PT SENT TO LOBBY.
[2022-06-02 21:55] LABS: BASOPHILS # (AUTO) 0.1 K/uL (0.00-0.22); BASOPHILS % (AUTO) 0.7 % (0.0-2.0); EOSINOPHILS # (AUTO) 0.4 K/uL (0-0.4); EOSINOPHILS % (AUTO) 5.9 % (0.0-4.0); HEMATOCRIT 46.9 % (36-52); HEMOGLOBIN 15.2 g/dL (12.0-18.0); LYMPHOCYTES # (AUTO) 1.6 K/uL (2.0-11.5); LYMPHOCYTES % (AUTO) 21.4 % (20.5-51.1); MEAN CORPUSCULAR HEMOGLOBIN 28 pg (27-31); MEAN CORPUSCULAR HGB CONC 32 g/dL (33-37); MEAN CORPUSCULAR VOLUME 85.2 fL (80-94); MONOCYTES # (AUTO) 0.7 K/uL (0.8-1.0); NEUTROPHILS # (AUTO) 4.7 K/uL (1.8-7.7); PLATELET COUNT (AUTO) 262 K/uL (140-450); RED BLOOD CELL COUNT(AUTO) 5.51 MIL/uL (4.20-6.10); RED CELL DISTRIBUTION WIDTH 15.3 % (11.6-13.7); WHITE BLOOD COUNT (AUTO) 7.4 K/uL (4.8-10.8)
[2022-06-02 22:19] LABS: ALBUMIN 4.1 g/dL (3.4-5.0); ANION GAP 13.5 (8-16); CARBON DIOXIDE 24.9 mmol/L (21-32); CREATININE 1.3 mg/dL (0.6-1.3); POTASSIUM 4.4 mmol/L (3.5-5.1); TOTAL BILIRUBIN 0.5 mg/dL (0.0-1.0)
[2022-06-02] MEDS ORDERED: DICYCLOMINE HCL LIQUID 20 MG, ALUMINUM HYD/MAG/SIMETHICONE 30 ML, LIDOCAINE VISCOUS 2% ... PO ONE ×3 (22:30)
[2022-06-02] MEDS ORDERED: MORPHINE SULFATE 4 MG/ML SYR IM ONE (22:30)
[2022-06-02] MEDS ORDERED: ONDANSETRON 4 MG ODT PO ONE (22:30)
[2022-06-02] MEDS ORDERED: DICYCLOMINE HCL LIQUID 10 MG/5 ML UDC ONE (22:57)
[2022-06-02] MEDS ORDERED: ALUMINUM HYD/MAG/SIMETHICONE 30 ML UDC ONE (22:57)
--- NOTE | 2022-06-02 23:11 | NUR ---
PT IN [facility]. PT HAS BEEN MEDICATED PER ORDERS.
--- NOTE | 2022-06-02 23:13 | NUR ---
10/10 FLANK PAIN X3DAYS. +DIARRHEA +N/V. REPORTS ABD CRAMPING. STATES HE HAD 1 EPISODE OF FEVER YESTERDAY. ORAL TEMP NOW 98.4. DENIES TAKING MEDICATION FOR PAIN. BS:110 HX:DM AND HTN RX:METFORMIN, LOSARTAN
--- NOTE | 2022-06-03 00:21 | NUR ---
ERMD WITH PT.
[2022-06-03] MEDS ORDERED: HYDROcodone/APAP 5/325 MG 1 TAB TAB PO ONE (00:25)
[2022-06-03] MEDS ORDERED: metroNIDAZOLE 500 MG TAB PO ONE (00:25)
[2022-06-03] MEDS ORDERED: ACET-9527 PO (00:28)
[2022-06-03] MEDS ORDERED: METR-520 PO (00:28)
[2022-06-03] MEDS ORDERED: CIPR500T4 PO (00:28)
[2022-06-03 00:43] VITALS: BP 132/84
--- NOTE | 2022-06-03 00:43 | NUR ---
Patient discharged with v/s stable. Written and verbal after care instructions given and explained. Patient alert, oriented and verbalized understanding of instructions. Ambulatory with steady gait. All questions addressed prior to discharge. ID band removed. Patient advised to follow up with PMD. Rx of NORCO, FLAGYL, AND CIPRO given. Patient educated on indication of medication including possible reaction and side effects. Opportunity to ask questions provided and answered.
[2022-06-03 02:13] LABS: APPEARANCE,URINE HAZY (CLEAR); BILIRUBIN,URINE NEGATIVE (NEGATIVE); BLOOD, URINE NEGATIVE (NEGATIVE); COLOR,URINE YELLOW (YELLOW); LEUKOCYTE ESTERASE ,URINE TRACE (NEGATIVE); NITRITE, URINE NEGATIVE (NEGATIVE); UGLUCOSE NEGATIVE (NEGATIVE)
[2022-06-03 02:29] LABS: RBC,URINE 0-5 /HPF (0-5); WBC,URINE 0-5 /HPF (0-5)
[2022-06-03 02:30] LABS: URINE AMORPHOUS URATE 4+ /HPF (None Seen)
== END 2022-06-03 00:43 | disposition home or self-care (01) ==
LOC: MED 20:34
DX: K57.32 Diverticulitis of large intestine without perforation or abscess without bleeding (principal); I10 Essential (primary) hypertension; E11.9 Type 2 diabetes mellitus without complications; Z79.4 Long term (current) use of insulin; Z79.899 Other long term (current) drug therapy
CPT/HCPCS: 36415; 74176; 80053; 81001; 83605; 85025; 96372; 99284; J2270; Q0162

== ENCOUNTER 2022-09-08 22:59 | Emergency (ER) | payer OTHER ==
[~2022-09-08] VITALS: Ht 157.5 cm; Wt 72.1 kg
[~2022-09-08 22:59] MED LIST changes: +ACET-9527 PO; +CIPR500T4 PO; +METR-520 PO
[2022-09-09] MEDS ORDERED: ONDANSETRON 4 MG/2 ML VIAL IVP ONE (00:10)
[2022-09-09] MEDS ORDERED: MORPHINE SULFATE 2 MG/ML SYR IVP ONE ×2 (00:10→03:50)
[2022-09-09] MEDS ORDERED: PIPERACILLIN/TAZOBACTAM 3.375 GM in DEXTROSE 5% 50 ML IV ONE (00:10)
[2022-09-09] MEDS ORDERED: NACL 0.9% 2,000 ML IV SCH (00:10)
--- NOTE | 2022-09-09 00:16 | NUR ---
PT TO BED 12
[2022-09-09 00:35] VITALS: BP 98/68
[2022-09-09 00:37] LABS: BASOPHILS # (AUTO) 0.1 K/uL (0.00-0.22); EOSINOPHILS # (AUTO) 0.3 K/uL (0-0.4); HEMATOCRIT 44.5 % (36-52); LYMPHOCYTES % (AUTO) 21.4 % (20.5-51.1); MEAN CORPUSCULAR HEMOGLOBIN 29 pg (27-31); MEAN CORPUSCULAR HGB CONC 34 g/dL (33-37); MEAN CORPUSCULAR VOLUME 85.2 fL (80-94); MONOCYTES # (AUTO) 0.8 K/uL (0.8-1.0); NEUTROPHILS % (AUTO) 65.6 % (42.2-75.2); PLATELET COUNT (AUTO) 298 K/uL (140-450); RED BLOOD CELL COUNT(AUTO) 5.23 MIL/uL (4.20-6.10); RED CELL DISTRIBUTION WIDTH 15.2 % (11.6-13.7); WHITE BLOOD COUNT (AUTO) 9.2 K/uL (4.8-10.8)
[2022-09-09] MEDS ORDERED: PIPERACILLIN/TAZOBACTAM 3.375 GM VIAL IV ONE (00:56)
[2022-09-09 00:57] LABS: ALBUMIN 3.6 g/dL (3.4-5.0); ANION GAP 17.7 (8-16); CARBON DIOXIDE 19.3 mmol/L (21-32); CREATININE 1.3 mg/dL (0.6-1.3); TOTAL BILIRUBIN 0.2 mg/dL (0.0-1.0)
--- NOTE | 2022-09-09 01:48 | NUR ---
PATIENT STABLE NOT COMPLAINING OF PAIN VITALS SIGNS IN NORMAL LIMITS
[2022-09-09] MEDS ORDERED: MORPHINE SULFATE 4 MG/ML SYR IVP ONE (04:05)
[2022-09-09] MEDS ORDERED: HYDR-5080 PO (06:11)
[2022-09-09] MEDS ORDERED: AMOX-999 PO (06:11)
[2022-09-09 06:35] VITALS: BP 13/72
--- NOTE | 2022-09-09 06:38 | NUR ---
PATIENT DC HOME FEELING WELL VITALS SIGNS IN NORMAL LIMITS STABLE ALL DC INSTRUCTION GAVE AND EXPLAINE WE RECOMMENDED TO FOLLOW UP WITH PCP
--- NOTE | 2022-09-11 08:07 | NUR ---
LATE ENTRY-IVF/IVP MEDS
== END 2022-09-09 06:28 | disposition home or self-care (01) ==
LOC: MED 22:59
DX: K57.92 Diverticulitis of intestine, part unspecified, without perforation or abscess without bleeding (principal); I10 Essential (primary) hypertension; E11.9 Type 2 diabetes mellitus without complications; K21.9 Gastro-esophageal reflux disease without esophagitis; Z79.4 Long term (current) use of insulin; Z79.899 Other long term (current) drug therapy
CPT/HCPCS: 36415; 74177; 80053; 83605; 83690; 85025; 87040; 96365; 96375; 96376; 99285; J2270; J2405; J2543; J7030; Q9967

== ENCOUNTER 2023-08-02 17:33 | Emergency (ER) | payer OTHER ==
[~2023-08-02] VITALS: Ht 162.6 cm; Wt 67.1 kg
[~2023-08-02 17:33] MED LIST changes: +AMOX-999 PO; +HYDR-5080 PO; +LOSA-272 PO; -LOSA100T1 PO
[2023-08-02 17:46] VITALS: BP 134/77; PULSE 73; RESP 18; TEMP 98.8; O2SAT 97
[2023-08-02] MEDS ORDERED: NACL 0.9% 1,000 ML IV ONE (18:30)
[2023-08-02 18:51] LABS: BASOPHILS % (AUTO) 0.5 % (0.0-2.0); EOSINOPHILS # (AUTO) 0.1 K/uL (0-0.4); EOSINOPHILS % (AUTO) 1.7 % (0.0-4.0); HEMATOCRIT 41.7 % (36-52); HEMOGLOBIN 13.8 g/dL (12.0-18.0); LYMPHOCYTES # (AUTO) 1.1 K/uL (2.0-11.5); LYMPHOCYTES % (AUTO) 14.7 % (20.5-51.1); MEAN CORPUSCULAR HEMOGLOBIN 30 pg (27-31); MEAN CORPUSCULAR HGB CONC 33 g/dL (33-37); MEAN CORPUSCULAR VOLUME 89.7 fL (80-94); MONOCYTES # (AUTO) 0.6 K/uL (0.8-1.0); MONOCYTES % (AUTO) 8.8 % (1.7-9.3); NEUTROPHILS # (AUTO) 5.4 K/uL (1.8-7.7); NEUTROPHILS % (AUTO) 74.3 % (42.2-75.2); PLATELET COUNT (AUTO) 282 K/uL (140-450); RED BLOOD CELL COUNT(AUTO) 4.64 MIL/uL (4.20-6.10); RED CELL DISTRIBUTION WIDTH 14.8 % (11.6-13.7); WHITE BLOOD COUNT (AUTO) 7.2 K/uL (4.8-10.8)
[2023-08-02 18:57] LABS: APPEARANCE,URINE CLEAR (CLEAR); BILIRUBIN,URINE NEGATIVE (NEGATIVE); BLOOD, URINE NEGATIVE (NEGATIVE); COLOR,URINE YELLOW (YELLOW); LEUKOCYTE ESTERASE ,URINE TRACE (NEGATIVE); NITRITE, URINE NEGATIVE (NEGATIVE); PROTEIN,URINE TRACE (NEGATIVE); UGLUCOSE NEGATIVE (NEGATIVE); UROBILINOGEN,URINE 0.2 EU/dL (0.2 - 1)
[2023-08-02] MEDS ORDERED: MORPHINE SULFATE 4 MG/ML SYR IVP ONE (19:05)
[2023-08-02 19:15] LABS: LACTIC ACID 0.7 mmol/L (0.4-2.0)
[2023-08-02 19:19] LABS: BACTERIA,URINE 1+ /HPF (None Seen); MUCUS,URINE 1+ /LPF (None Seen); RBC,URINE 0-5 /HPF (0-5); SQUAMOUS EPITHELIAL CELL,UR 4-10 (MOD) /LPF (0-3 (FEW)); TRICHOMONAS,URINE None Seen /HPF (None Seen); YEAST,URINE None Seen /HPF (None Seen)
[2023-08-02 19:33] LABS: ALBUMIN 3.6 g/dL (3.4-5.0); ANION GAP 10.8 (8-16); CARBON DIOXIDE 23.2 mmol/L (21-32); CREATININE 1.2 mg/dL (0.6-1.3); TOTAL BILIRUBIN 0.3 mg/dL (0.0-1.0)
[2023-08-02] MEDS ORDERED: ACET-2619 PO (20:13)
[2023-08-02] MEDS ORDERED: CEPH250C16 PO (20:13)
[2023-08-02] MEDS ORDERED: cefTRIAXone 1,000 MG VIAL ONE (20:47)
[2023-08-02 21:33] VITALS: BP 135/74; PULSE 60; RESP 13; TEMP 98.4; O2SAT 98
== END 2023-08-02 21:33 | disposition home or self-care (01) ==
LOC: MED 17:33
DX: R10.11 Right upper quadrant pain (principal); R19.7 Diarrhea, unspecified; R11.0 Nausea; E11.9 Type 2 diabetes mellitus without complications; K21.9 Gastro-esophageal reflux disease without esophagitis; I10 Essential (primary) hypertension; Z79.899 Other long term (current) drug therapy; Z79.84 Long term (current) use of oral hypoglycemic drugs; Z85.89 Personal history of malignant neoplasm of other organs and systems
CPT/HCPCS: 36415; 74176; 80053; 81001; 83605; 83690; 85025; 87040; 87086; 96361; 96365; 96375; 99285; J0696; J2270; J7030

== ENCOUNTER 2023-11-06 20:45 | Observation (INO) | payer OTHER ==
[~2023-11-06] VITALS: Ht 162.6 cm; Wt 73.5 kg
[~2023-11-06 20:45] MED LIST changes: +ACET-2619 PO; +CEPH250C16 PO
[2023-11-06 21:12] VITALS: BP 129/81; PULSE 98; RESP 20; TEMP 99.1; O2SAT 97
[2023-11-06] MEDS ORDERED: MORPHINE SULFATE 4 MG/ML SYR IM ONE (22:25)
[2023-11-06 23:22] LABS: BASOPHILS % (AUTO) 0.5 % (0.0-2.0); EOSINOPHILS # (AUTO) 0.2 K/uL (0-0.4); EOSINOPHILS % (AUTO) 2.8 % (0.0-4.0); HEMATOCRIT 35.5 % (36-52); HEMOGLOBIN 11.8 g/dL (12.0-18.0); LYMPHOCYTES # (AUTO) 1.8 K/uL (2.0-11.5); LYMPHOCYTES % (AUTO) 27.6 % (20.5-51.1); MEAN CORPUSCULAR HEMOGLOBIN 27 pg (27-31); MEAN CORPUSCULAR HGB CONC 33 g/dL (33-37); MEAN CORPUSCULAR VOLUME 81.2 fL (80-94); MONOCYTES # (AUTO) 0.7 K/uL (0.8-1.0); NEUTROPHILS # (AUTO) 3.7 K/uL (1.8-7.7); NEUTROPHILS % (AUTO) 58.1 % (42.2-75.2); PLATELET COUNT (AUTO) 312 K/uL (140-450); RED BLOOD CELL COUNT(AUTO) 4.37 MIL/uL (4.20-6.10); RED CELL DISTRIBUTION WIDTH 15.2 % (11.6-13.7); WHITE BLOOD COUNT (AUTO) 6.4 K/uL (4.8-10.8)
[2023-11-06 23:28] LABS: ANION GAP 10.2 (8-16); CREATININE 1.1 mg/dL (0.6-1.3); POTASSIUM 4.2 mmol/L (3.5-5.1)
[2023-11-07] MEDS ORDERED: NITROGLYCERIN 0.4 MG TAB SL ONE (00:10)
[2023-11-07] MEDS ORDERED: ASPIRIN 81 MG TAB.CHEW PO ONE (00:10)
[2023-11-07 01:07] LABS: AMPHETAMINE, URINE NEGATIVE ng/ml (NEG <=1000); BARBITURATE, URINE NEGATIVE ng/ml (NEG <=200); BENZODIAZEPINE, URINE NEGATIVE ng/mL (NEG <=200); CANNABINOID, URINE NEGATIVE ng/mL (NEG <=50); COCAINE, URINE NEGATIVE ng/mL (NEG <=300); PHENCYCLIDINE SCREEN,URINE NEGATIVE ng/mL (NEG <=25)
[2023-11-07 01:08] LABS: OPIATE, URINE POSITIVE ng/mL (NEG <=2000)
[2023-11-07] MEDS ORDERED: LORazepam 1 MG TAB PO PRN (02:40)
[2023-11-07] MEDS ORDERED: ACETAMINOPHEN 325 MG TAB PO PRN (02:40)
[2023-11-07] MEDS ORDERED: ZOLPIDEM 5 MG TAB PO PRN (02:40)
[2023-11-07] MEDS: SODIUM CHLORIDE FLUSH 10 ML SYR IVF SCH ×2 (05:02→13:10)
[2023-11-07 10:00] VITALS: BP 143/88; PULSE 67; PULSE 78; RESP 18; TEMP 98; O2SAT 100
[2023-11-07] MEDS: NITROGLYCERIN 0.4 MG TAB SL PRN ×2 (10:22→10:44)
[2023-11-07] MEDS ORDERED: MORPHINE SULFATE 4 MG/ML SYR IVP SCH (14:00)
[2023-11-07 14:01] VITALS: PULSE 67
[2023-11-07 17:45] VITALS: BP 143/88; PULSE 67; RESP 18; TEMP 98
== END 2023-11-07 18:13 | disposition home or self-care (01) ==
LOC: MED 20:45 → MTU 11-07 02:42 → MMU 11-07 03:18
PROVIDERS: ADMIT Hospitalist; ATTEND Hospitalist
DX: M94.0 Chondrocostal junction syndrome [Tietze] (principal); I10 Essential (primary) hypertension; E11.9 Type 2 diabetes mellitus without complications; K21.9 Gastro-esophageal reflux disease without esophagitis; E78.5 Hyperlipidemia, unspecified; R07.89 Other chest pain; R51.9 Headache, unspecified; E66.01 Morbid (severe) obesity due to excess calories; Z79.84 Long term (current) use of oral hypoglycemic drugs; Z87.891 Personal history of nicotine dependence; Z79.899 Other long term (current) drug therapy; Z98.890 Other specified postprocedural states; Z79.82 Long term (current) use of aspirin; Z68.27 Body mass index [BMI] 27.0-27.9, adult
CPT/HCPCS: 36415; 70450; 71045; 80048; 80305; 83880; 84484; 85025; 93005; 93307; 96372; 96374; 99285; G0378; J2270; Q0092

== ENCOUNTER 2023-11-11 22:43 | Emergency (ER) | payer OTHER ==
[~2023-11-11] VITALS: Ht 162.6 cm; Wt 73.5 kg
[~2023-11-11 22:43] MED LIST changes: -ACET-9527 PO; -AMOX-999 PO; -CEPH250C16 PO; -CIPR500T4 PO; -HYDR-5080 PO; -METR-520 PO
[2023-11-11 23:01] VITALS: BP 104/80; PULSE 95; RESP 18; TEMP 98.1; O2SAT 100
[2023-11-11 23:25] VITALS: O2SAT 100
[2023-11-12] MEDS ORDERED: ACETAMINOPHEN EXTRA STRENGTH 500 MG TAB PO ONE (00:15)
[2023-11-12] MEDS ORDERED: LIDOCAINE MPF 1% 10 MG/ML VIAL INJ ONE (00:15)
== END 2023-11-12 01:57 | disposition home or self-care (01) ==
LOC: MED 22:43
DX: S51.812A Laceration without foreign body of left forearm, initial encounter (principal); E11.9 Type 2 diabetes mellitus without complications; K21.9 Gastro-esophageal reflux disease without esophagitis; I10 Essential (primary) hypertension; Z79.899 Other long term (current) drug therapy; W26.0XXA Contact with knife, initial encounter; Y93.89 Activity, other specified; Y92.89 Other specified places as the place of occurrence of the external cause; Y99.8 Other external cause status
CPT/HCPCS: 12002; 73090; 99283; J2001; Q0092

== ENCOUNTER 2023-11-16 02:43 | Observation (INO) | payer OTHER ==
[~2023-11-16] VITALS: Ht 162.6 cm; Wt 69.4 kg
[2023-11-16 02:58] VITALS: BP 148/114; PULSE 96; RESP 20; TEMP 97.8; O2SAT 96
[2023-11-16] MEDS ORDERED: NITROGLYCERIN 2% 1 GM PKT TP ONE (03:20)
[2023-11-16] MEDS ORDERED: ASPIRIN 325 MG TAB PO ONE (03:20)
[2023-11-16] MEDS ORDERED: MORPHINE SULFATE 4 MG/ML SYR IVP ONE (03:20)
[2023-11-16 03:44] LABS: BASOPHILS % (AUTO) 0.4 % (0.0-2.0); EOSINOPHILS # (AUTO) 0.2 K/uL (0-0.4); EOSINOPHILS % (AUTO) 2.4 % (0.0-4.0); HEMATOCRIT 37.3 % (36-52); HEMOGLOBIN 12.4 g/dL (12.0-18.0); LYMPHOCYTES # (AUTO) 1.5 K/uL (2.0-11.5); MEAN CORPUSCULAR HEMOGLOBIN 27 pg (27-31); MEAN CORPUSCULAR HGB CONC 33 g/dL (33-37); MEAN CORPUSCULAR VOLUME 80.9 fL (80-94); MONOCYTES # (AUTO) 0.8 K/uL (0.8-1.0); MONOCYTES % (AUTO) 9.4 % (1.7-9.3); NEUTROPHILS % (AUTO) 69.8 % (42.2-75.2); PLATELET COUNT (AUTO) 348 K/uL (140-450); RED CELL DISTRIBUTION WIDTH 15.5 % (11.6-13.7); WHITE BLOOD COUNT (AUTO) 8.6 K/uL (4.8-10.8)
[2023-11-16 03:54] LABS: ANION GAP 14.9 (8-16); CARBON DIOXIDE 24.2 mmol/L (21-32); CREATININE 1.2 mg/dL (0.6-1.3); POTASSIUM 5.1 mmol/L (3.5-5.1)
[2023-11-16 04:00] LABS: ALANINE AMINOTRANSFERASE 18 U/L (12-78); ALBUMIN 3.4 g/dL (3.4-5.0); ALKALINE PHOSPHATASE 135 U/L (50-136); ASPARTATE AMINOTRANSFERASE 11 U/L (15-37); BILIRUBIN,DIRECT 0.1 mg/dL (0.0-0.3); TOTAL BILIRUBIN 0.2 mg/dL (0.0-1.0); TOTAL PROTEIN, SERUM 8.2 g/dL (6.4-8.2)
[2023-11-16] MEDS ORDERED: KCL 20 MEQ IN 100 mL PREMIX 200 ML IV PRN (06:30)
[2023-11-16] MEDS ORDERED: POTASSIUM CHLORIDE 10 MEQ TABER PO PRN (06:30)
[2023-11-16] MEDS ORDERED: MAG SULF 2000 MG/WATER PREMIX 50 ML IV PRN (06:30)
[2023-11-16] MEDS ORDERED: IBUPROFEN 400 MG TAB PO PRN (06:30)
[2023-11-16] MEDS ORDERED: MAGNESIUM OXIDE 400 MG TAB PO PRN (06:30)
[2023-11-16] MEDS ORDERED: HYDROcodone/APAP 5/325 MG 1 TAB TAB PO PRN (06:30)
[2023-11-16] MEDS ORDERED: ACETAMINOPHEN 325 MG TAB PO PRN (06:30)
[2023-11-16] MEDS ORDERED: NITROGLYCERIN 0.4 MG TAB SL PRN (06:35)
[2023-11-16] MEDS ORDERED: ATORVASTATIN 20 MG TAB PO SCH (09:00)
[2023-11-16 11:55] VITALS: BP 163/98; PULSE 84; RESP 20; TEMP 98.1; O2SAT 97
[2023-11-17] MEDS ORDERED: ASPIRIN 81 MG TAB.CHEW PO SCH (09:00)
== END 2023-11-16 11:48 | disposition left against medical advice (07) ==
LOC: MED 02:43 → MTU 06:33 → UNDODISOB 11:45
PROVIDERS: ADMIT Internal Medicine; ATTEND Internal Medicine
DX: R07.89 Other chest pain (principal); I20.9 Angina pectoris, unspecified; I10 Essential (primary) hypertension; E11.9 Type 2 diabetes mellitus without complications; E78.5 Hyperlipidemia, unspecified; E66.9 Obesity, unspecified; R51.9 Headache, unspecified; N28.89 Other specified disorders of kidney and ureter; F17.200 Nicotine dependence, unspecified, uncomplicated; Z68.26 Body mass index [BMI] 26.0-26.9, adult; Z79.899 Other long term (current) drug therapy
CPT/HCPCS: 36415; 70450; 71045; 71260; 80048; 80076; 83880; 84484; 85025; 85379; 93005; 96372; 96374; 99285; G0378; J1644; J2270; Q0092; Q9967

== ENCOUNTER 2024-01-29 14:02 | Emergency (ER) | payer OTHER ==
[~2024-01-29] VITALS: Ht 162.6 cm; Wt 73.5 kg
[~2024-01-29 14:02] MED LIST changes: -ACET-2619 PO
[2024-01-29 14:20] VITALS: BP 115/74; PULSE 103; RESP 19; TEMP 98.2; O2SAT 98
[2024-01-29 15:02] LABS: BASOPHILS % (AUTO) 0.1 % (0.0-2.0); EOSINOPHILS % (AUTO) 0.5 % (0.0-4.0); HEMATOCRIT 34.9 % (36-52); HEMOGLOBIN 11.6 g/dL (12.0-18.0); LYMPHOCYTES # (AUTO) 0.8 K/uL (2.0-11.5); LYMPHOCYTES % (AUTO) 9.4 % (20.5-51.1); MEAN CORPUSCULAR HEMOGLOBIN 26 pg (27-31); MEAN CORPUSCULAR HGB CONC 33 g/dL (33-37); MEAN CORPUSCULAR VOLUME 77.9 fL (80-94); MONOCYTES # (AUTO) 0.8 K/uL (0.8-1.0); NEUTROPHILS # (AUTO) 6.5 K/uL (1.8-7.7); PLATELET COUNT (AUTO) 389 K/uL (140-450); RED BLOOD CELL COUNT(AUTO) 4.48 MIL/uL (4.20-6.10); RED CELL DISTRIBUTION WIDTH 16.8 % (11.6-13.7); WHITE BLOOD COUNT (AUTO) 8.1 K/uL (4.8-10.8)
[2024-01-29] MEDS: MORPHINE SULFATE 4 MG/ML SYR IVP ONE ×2 (15:12→17:09)
[2024-01-29] MEDS: ONDANSETRON 4 MG/2 ML VIAL IVP ONE (15:15)
[2024-01-29 15:19] LABS: ANION GAP 16.7 (8-16); CALCIUM 8.7 mg/dL (8.5-10.1); CARBON DIOXIDE 21.9 mmol/L (21-32); CREATININE 1.7 mg/dL (0.6-1.3); POTASSIUM 4.6 mmol/L (3.5-5.1)
[2024-01-29 15:27] LABS: LACTIC ACID 1.3 mmol/L (0.4-2.0)
[2024-01-29 15:34] LABS: APPEARANCE,URINE SL CLOUDY (CLEAR); BILIRUBIN,URINE 2+ (NEGATIVE); BLOOD, URINE NEGATIVE (NEGATIVE); COLOR,URINE YELLOW (YELLOW); LEUKOCYTE ESTERASE ,URINE NEGATIVE (NEGATIVE); NITRITE, URINE NEGATIVE (NEGATIVE); PROTEIN,URINE 2+ (NEGATIVE); UGLUCOSE TRACE (NEGATIVE); UROBILINOGEN,URINE 0.2 EU/dL (0.2 - 1)
[2024-01-29 15:36] LABS: BILIRUBIN,DIRECT 0.1 mg/dL (0.0-0.3); TOTAL BILIRUBIN 0.1 mg/dL (0.0-1.0); TOTAL PROTEIN, SERUM 7.1 g/dL (6.4-8.2)
[2024-01-29 15:42] LABS: ICTOTEST NEGATIVE (NEGATIVE)
[2024-01-29] MEDS ORDERED: ACET-8905 PO (17:32)
[2024-01-29] MEDS ORDERED: AMOX-1230 PO (17:32)
[2024-01-29 17:40] VITALS: BP 111/75; PULSE 84; RESP 19; TEMP 98.2; O2SAT 98
== END 2024-01-29 17:40 | disposition home or self-care (01) ==
LOC: MED 14:02
DX: K57.32 Diverticulitis of large intestine without perforation or abscess without bleeding (principal); D50.9 Iron deficiency anemia, unspecified; E11.9 Type 2 diabetes mellitus without complications; K21.9 Gastro-esophageal reflux disease without esophagitis; I10 Essential (primary) hypertension; E78.00 Pure hypercholesterolemia, unspecified; Z79.899 Other long term (current) drug therapy
CPT/HCPCS: 36415; 74176; 80048; 80076; 81001; 81003; 83605; 83690; 85025; 96374; 96375; 96376; 99285; J2270; J2405

== ENCOUNTER 2024-02-01 19:24 | Inpatient (IN) | payer OTHER ==
[~2024-02-01] VITALS: Ht 162.6 cm; Wt 73.5 kg
[2024-02-01] MEDS: metroNIDAZOLE 500 MG/NS PREMIX 100 ML IV ONE (01:20)
[~2024-02-01 19:24] MED LIST changes: +ACET-8905 PO; +AMOX-1230 PO
[2024-02-01 19:45] VITALS: BP 115/76; PULSE 98; RESP 18; TEMP 97.7; O2SAT 97
[2024-02-01 20:45] LABS: BASOPHILS % (AUTO) 0.2 % (0.0-2.0); EOSINOPHILS # (AUTO) 0.1 K/uL (0-0.4); EOSINOPHILS % (AUTO) 0.8 % (0.0-4.0); HEMATOCRIT 35.5 % (36-52); HEMOGLOBIN 11.7 g/dL (12.0-18.0); LYMPHOCYTES # (AUTO) 1.5 K/uL (2.0-11.5); LYMPHOCYTES % (AUTO) 16.2 % (20.5-51.1); MEAN CORPUSCULAR HEMOGLOBIN 26 pg (27-31); MEAN CORPUSCULAR HGB CONC 33 g/dL (33-37); MEAN CORPUSCULAR VOLUME 77.3 fL (80-94); MONOCYTES # (AUTO) 1.3 K/uL (0.8-1.0); MONOCYTES % (AUTO) 14.3 % (1.7-9.3); NEUTROPHILS # (AUTO) 6.2 K/uL (1.8-7.7); NEUTROPHILS % (AUTO) 68.5 % (42.2-75.2); PLATELET COUNT (AUTO) 459 K/uL (140-450); RED CELL DISTRIBUTION WIDTH 17.3 % (11.6-13.7); WHITE BLOOD COUNT (AUTO) 9.1 K/uL (4.8-10.8)
[2024-02-01 20:56] LABS: ANION GAP 19.1 (8-16); CALCIUM 8.7 mg/dL (8.5-10.1); CARBON DIOXIDE 22.4 mmol/L (21-32); CREATININE 1.6 mg/dL (0.6-1.3); POTASSIUM 4.5 mmol/L (3.5-5.1)
[2024-02-01 21:17] LABS: BILIRUBIN,DIRECT 0.1 mg/dL (0.0-0.3); TOTAL BILIRUBIN 0.2 mg/dL (0.0-1.0); TOTAL PROTEIN, SERUM 7.6 g/dL (6.4-8.2)
[2024-02-01] MEDS: oxyCODONE/APAP 5/325 MG 1 TAB TAB PO ONE (21:24)
[2024-02-01] MEDS: NACL 0.9% 1,000 ML IV ONE ×2 (21:24→23:11)
[2024-02-01] MEDS: MORPHINE SULFATE 4 MG/ML SYR IVP ONE (22:45)
[2024-02-01] MEDS: CIPROFLOXACIN 400 MG/200ML-D5W 200 ML IV ONE (22:50)
[2024-02-01 23:18] LABS: LACTIC ACID 1.2 mmol/L (0.4-2.0)
[2024-02-01 23:21] VITALS: O2SAT 100
[2024-02-02] MEDS: diphenhydrAMINE 50 MG/ML VIAL IVP ONE (00:33)
[2024-02-02] MEDS ORDERED: metroNIDAZOLE 500 MG/NS PREMIX 100 ML IV ONE (01:04)
[2024-02-02] MEDS ORDERED: diphenhydrAMINE 50 MG/ML VIAL IVP ONE (01:05)
[2024-02-02] MEDS ORDERED: ACETAMINOPHEN EXTRA STRENGTH 500 MG TAB PO PRN (02:25)
[2024-02-02] MEDS ORDERED: HYDROcodone/APAP 5/325 MG 1 TAB TAB ONE (02:45)
[2024-02-02] MEDS: NACL 0.9% 1,000 ML IV SCH (03:42)
[2024-02-02] MEDS: HYDROcodone/APAP 5/325 MG 1 TAB TAB PO PRN (03:42)
[2024-02-02 03:54] VITALS: O2SAT 100
[2024-02-02] MEDS ORDERED: AMPICILLIN/SULBACTAM 1.5 GM VIAL ONE ×2 (05:42)
[2024-02-02] MEDS: AMPICILLIN/SULBACTAM 1.5 GM in NACL 0.9% 50 ML IV SCH (05:45)
[2024-02-02] MEDS: MORPHINE SULFATE 2 MG/ML SYR IVP PRN (05:45)
[2024-02-02 06:42] LABS: BASOPHILS % (AUTO) 0.3 % (0.0-2.0); EOSINOPHILS # (AUTO) 0.2 K/uL (0-0.4); EOSINOPHILS % (AUTO) 2.8 % (0.0-4.0); HEMATOCRIT 30.3 % (36-52); LYMPHOCYTES % (AUTO) 18.2 % (20.5-51.1); MEAN CORPUSCULAR HEMOGLOBIN 26 pg (27-31); MEAN CORPUSCULAR HGB CONC 33 g/dL (33-37); MEAN CORPUSCULAR VOLUME 77.7 fL (80-94); MONOCYTES # (AUTO) 0.9 K/uL (0.8-1.0); MONOCYTES % (AUTO) 16.2 % (1.7-9.3); NEUTROPHILS # (AUTO) 3.4 K/uL (1.8-7.7); NEUTROPHILS % (AUTO) 62.5 % (42.2-75.2); PLATELET COUNT (AUTO) 370 K/uL (140-450); RED CELL DISTRIBUTION WIDTH 16.9 % (11.6-13.7); WHITE BLOOD COUNT (AUTO) 5.5 K/uL (4.8-10.8)
[2024-02-02 07:04] LABS: ALBUMIN 2.2 g/dL (3.4-5.0); ANION GAP 13.3 (8-16); CALCIUM 7.8 mg/dL (8.5-10.1); CREATININE 1.2 mg/dL (0.6-1.3); POTASSIUM 4.3 mmol/L (3.5-5.1); TOTAL BILIRUBIN 0.2 mg/dL (0.0-1.0); TOTAL PROTEIN, SERUM 5.7 g/dL (6.4-8.2)
[2024-02-02 08:20] VITALS: BP 144/71; PULSE 61; RESP 16; TEMP 97.2; O2SAT 98
[2024-02-02 12:00] VITALS: BP 148/74; PULSE 63; RESP 17; TEMP 97.1; O2SAT 98
[2024-02-02 16:00] VITALS: BP 137/75; PULSE 76; RESP 18; TEMP 97; O2SAT 96
[2024-02-02 20:00] VITALS: BP 113/59; PULSE 94; RESP 18; TEMP 99.2; O2SAT 97
[2024-02-02] MEDS ORDERED: DEXTROSE 50% 50 ML SYR IVP PRN (20:20)
[2024-02-02] MEDS: BLOOD GLUCOSE MONITORING 1 DEV DEV FS SCH (21:14)
[2024-02-02] MEDS: ZOLPIDEM 5 MG TAB PO PRN (22:07)
[2024-02-03] MEDS: predniSONE 20 MG TAB PO STA (04:15)
[2024-02-03] MEDS: diphenhydrAMINE 50 MG/ML VIAL IVP ONE (04:15)
[2024-02-03 07:19] LABS: BASOPHILS % (AUTO) 0.2 % (0.0-2.0); EOSINOPHILS % (AUTO) 0.5 % (0.0-4.0); HEMATOCRIT 32.1 % (36-52); HEMOGLOBIN 10.7 g/dL (12.0-18.0); LYMPHOCYTES # (AUTO) 0.7 K/uL (2.0-11.5); LYMPHOCYTES % (AUTO) 8.8 % (20.5-51.1); MEAN CORPUSCULAR HEMOGLOBIN 26 pg (27-31); MEAN CORPUSCULAR HGB CONC 33 g/dL (33-37); MEAN CORPUSCULAR VOLUME 77.2 fL (80-94); MONOCYTES # (AUTO) 0.3 K/uL (0.8-1.0); MONOCYTES % (AUTO) 3.6 % (1.7-9.3); NEUTROPHILS # (AUTO) 6.9 K/uL (1.8-7.7); NEUTROPHILS % (AUTO) 86.9 % (42.2-75.2); PLATELET COUNT (AUTO) 423 K/uL (140-450); RED BLOOD CELL COUNT(AUTO) 4.16 MIL/uL (4.20-6.10)
[2024-02-03 08:00] VITALS: BP 113/68; PULSE 69; PULSE 92; RESP 18; TEMP 97.2; O2SAT 96; O2SAT 97
[2024-02-03 08:08] LABS: CARCINOEMBRYONIC AG 3.1 ng/mL (0.0-4.7)
[2024-02-03 08:11] LABS: ALBUMIN 2.4 g/dL (3.4-5.0); ANION GAP 14.7 (8-16); CALCIUM 8.4 mg/dL (8.5-10.1); CARBON DIOXIDE 20.6 mmol/L (21-32); CREATININE 1.1 mg/dL (0.6-1.3); POTASSIUM 4.3 mmol/L (3.5-5.1); TOTAL BILIRUBIN 0.2 mg/dL (0.0-1.0); TOTAL PROTEIN, SERUM 5.9 g/dL (6.4-8.2)
[2024-02-03] MEDS: LOSARTAN 50 MG TAB PO SCH (11:16)
[2024-02-03] MEDS ORDERED: METR-520 PO (11:54)
[2024-02-03] MEDS ORDERED: ACET-10509 PO (11:54)
[2024-02-03] MEDS: INSULIN LISPRO SLIDING SCALE 100 UNITS/ML VIAL SUBQ PRN (12:09)
== END 2024-02-03 12:45 | disposition home or self-care (01) | DRG 391 ==
LOC: MED 19:24 → MMU 02-02 01:58 → MTU 02-02 06:15
PROVIDERS: ADMIT Student in an Organized Health Care Education/Training Program; ATTEND Student in an Organized Health Care Education/Training Program
DX: K52.89 Other specified noninfective gastroenteritis and colitis (principal); N17.0 Acute kidney failure with tubular necrosis; E44.1 Mild protein-calorie malnutrition; E83.51 Hypocalcemia; K21.9 Gastro-esophageal reflux disease without esophagitis; I10 Essential (primary) hypertension; E11.9 Type 2 diabetes mellitus without complications; Z88.1 Allergy status to other antibiotic agents; Z88.8 Allergy status to other drugs, medicaments and biological substances; Z79.899 Other long term (current) drug therapy; Z83.3 Family history of diabetes mellitus; Z68.27 Body mass index [BMI] 27.0-27.9, adult
CPT/HCPCS: 36415; 74177; 80048; 80053; 80076; 82378; 82948; 83036; 83605; 83690; 85025; 86301; 87040; 87081; 96361; 96365; 96375; 99285; J0295; J0744; J1200; J1815; J2270; J3490; J7512; Q9967

== ENCOUNTER 2024-07-25 00:55 | Emergency (ER) | payer OTHER ==
[~2024-07-25] VITALS: Ht 162.6 cm; Wt 90.7 kg
[~2024-07-25 00:55] MED LIST changes: +ACET500T99 PO; +METR-520 PO
[2024-07-25 01:10] VITALS: BP 129/76; PULSE 93; RESP 16; TEMP 98.1; O2SAT 99
[2024-07-25 01:30] VITALS: O2SAT 98
[2024-07-25] MEDS: KETOROLAC 30 MG/ML VIAL IVP ONE (01:34)
[2024-07-25] MEDS: ONDANSETRON 4 MG/2 ML VIAL IVP ONE (01:34)
[2024-07-25] MEDS: MORPHINE SULFATE 2 MG/ML SYR IVP STA (01:35)
[2024-07-25] MEDS: NACL 0.9% 1,000 ML IV ONE (01:36)
[2024-07-25 01:38] LABS: BASOPHILS % (AUTO) 0.5 % (0.0-2.0); EOSINOPHILS # (AUTO) 0.3 K/uL (0-0.4); EOSINOPHILS % (AUTO) 4.1 % (0.0-4.0); HEMATOCRIT 34.3 % (36-52); HEMOGLOBIN 11.3 g/dL (12.0-18.0); LYMPHOCYTES # (AUTO) 1.3 K/uL (2.0-11.5); LYMPHOCYTES % (AUTO) 18.3 % (20.5-51.1); MEAN CORPUSCULAR HEMOGLOBIN 27 pg (27-31); MEAN CORPUSCULAR HGB CONC 33 g/dL (33-37); MEAN CORPUSCULAR VOLUME 81.3 fL (80-94); MONOCYTES # (AUTO) 0.8 K/uL (0.8-1.0); MONOCYTES % (AUTO) 10.9 % (1.7-9.3); NEUTROPHILS # (AUTO) 4.8 K/uL (1.8-7.7); NEUTROPHILS % (AUTO) 66.2 % (42.2-75.2); PLATELET COUNT (AUTO) 391 K/uL (140-450); RED BLOOD CELL COUNT(AUTO) 4.22 MIL/uL (4.20-6.10); WHITE BLOOD COUNT (AUTO) 7.3 K/uL (4.8-10.8)
[2024-07-25 01:39] LABS: APPEARANCE,URINE CLEAR (CLEAR); BILIRUBIN,URINE NEGATIVE (NEGATIVE); BLOOD, URINE TRACE-L (NEGATIVE); COLOR,URINE YELLOW (YELLOW); LEUKOCYTE ESTERASE ,URINE NEGATIVE (NEGATIVE); NITRITE, URINE NEGATIVE (NEGATIVE); PROTEIN,URINE TRACE (NEGATIVE); UGLUCOSE NEGATIVE (NEGATIVE); UROBILINOGEN,URINE 0.2 EU/dL (0.2 - 1)
[2024-07-25 01:47] LABS: BACTERIA,URINE 10-30 (MOD) /HPF (None Seen); SQUAMOUS EPITHELIAL CELL,UR 0-3 (FEW) /LPF (0-3 (FEW)); WBC,URINE 0-5 /HPF (0-5)
[2024-07-25 01:51] LABS: ALBUMIN 3.3 g/dL (3.4-5.0); ANION GAP 14.4 (8-16); CALCIUM 8.8 mg/dL (8.5-10.1); CARBON DIOXIDE 21.8 mmol/L (21-32); CREATININE 1.5 mg/dL (0.6-1.3); POTASSIUM 4.2 mmol/L (3.5-5.1); TOTAL BILIRUBIN 0.2 mg/dL (0.0-1.0); TOTAL PROTEIN, SERUM 7.4 g/dL (6.4-8.2)
[2024-07-25] MEDS ORDERED: AMOX-1230 PO (03:39)
[2024-07-25] MEDS ORDERED: ACET-9527 PO (03:39)
[2024-07-25] MEDS ORDERED: IBUP-1842 PO (03:41)
[2024-07-25] MEDS: HYDROcodone/APAP 5/325 MG 1 TAB TAB PO ONE (03:45)
[2024-07-25 03:53] VITALS: BP 119/65; PULSE 75; RESP 18; TEMP 98; O2SAT 99
== END 2024-07-25 03:53 | disposition home or self-care (01) ==
LOC: MED 00:55
DX: K57.92 Diverticulitis of intestine, part unspecified, without perforation or abscess without bleeding (principal); R82.71 Bacteriuria; N17.9 Acute kidney failure, unspecified; E11.9 Type 2 diabetes mellitus without complications; I10 Essential (primary) hypertension; Z79.84 Long term (current) use of oral hypoglycemic drugs; Z79.1 Long term (current) use of non-steroidal anti-inflammatories (NSAID); Z79.2 Long term (current) use of antibiotics; Z79.899 Other long term (current) drug therapy; Z88.1 Allergy status to other antibiotic agents; Z88.8 Allergy status to other drugs, medicaments and biological substances
CPT/HCPCS: 36415; 74177; 80053; 81001; 85025; 96361; 96374; 96375; 99285; J1885; J2270; J2405; J7030; Q9967

== ENCOUNTER 2024-08-05 14:28 | Emergency (ER) | payer OTHER ==
[~2024-08-05] VITALS: Ht 162.6 cm; Wt 67.1 kg
[~2024-08-05 14:28] MED LIST changes: +ACET-9527 PO; +IBUP-1842 PO
[2024-08-05 14:52] VITALS: BP 102/69; PULSE 94; RESP 16; TEMP 97.9; O2SAT 97
[2024-08-05 15:14] VITALS: BP 104/77; PULSE 85; RESP 16; TEMP 97.9; O2SAT 98
[2024-08-05 15:45] LABS: BASOPHILS % (AUTO) 0.4 % (0.0-2.0); EOSINOPHILS # (AUTO) 0.2 K/uL (0-0.4); EOSINOPHILS % (AUTO) 1.9 % (0.0-4.0); HEMATOCRIT 35.2 % (36-52); HEMOGLOBIN 11.6 g/dL (12.0-18.0); LYMPHOCYTES # (AUTO) 1.5 K/uL (2.0-11.5); LYMPHOCYTES % (AUTO) 14.5 % (20.5-51.1); MEAN CORPUSCULAR HEMOGLOBIN 27 pg (27-31); MEAN CORPUSCULAR HGB CONC 33 g/dL (33-37); MEAN CORPUSCULAR VOLUME 81.5 fL (80-94); MONOCYTES % (AUTO) 10.1 % (1.7-9.3); NEUTROPHILS # (AUTO) 7.6 K/uL (1.8-7.7); NEUTROPHILS % (AUTO) 73.1 % (42.2-75.2); PLATELET COUNT (AUTO) 399 K/uL (140-450); RED BLOOD CELL COUNT(AUTO) 4.32 MIL/uL (4.20-6.10); RED CELL DISTRIBUTION WIDTH 17.7 % (11.6-13.7); WHITE BLOOD COUNT (AUTO) 10.4 K/uL (4.8-10.8)
[2024-08-05] MEDS: NACL 0.9% 1,000 ML IV ONE (15:56)
[2024-08-05] MEDS: MORPHINE SULFATE 4 MG/ML SYR IVP ONE (15:57)
[2024-08-05] MEDS: ONDANSETRON 4 MG/2 ML VIAL IVP ONE (15:58)
[2024-08-05 16:11] LABS: ANION GAP 13.3 (8-16); CALCIUM 8.4 mg/dL (8.5-10.1); CARBON DIOXIDE 24.6 mmol/L (21-32); CREATININE 1.6 mg/dL (0.6-1.3); POTASSIUM 4.9 mmol/L (3.5-5.1)
[2024-08-05 16:13] LABS: ALBUMIN 3.1 g/dL (3.4-5.0); BILIRUBIN,DIRECT 0.1 mg/dL (0.0-0.3); TOTAL BILIRUBIN 0.1 mg/dL (0.0-1.0); TOTAL PROTEIN, SERUM 6.7 g/dL (6.4-8.2)
[2024-08-05 16:21] LABS: BILIRUBIN,URINE NEGATIVE (NEGATIVE); BLOOD, URINE NEGATIVE (NEGATIVE); COLOR,URINE YELLOW (YELLOW); LEUKOCYTE ESTERASE ,URINE TRACE (NEGATIVE); NITRITE, URINE NEGATIVE (NEGATIVE); PROTEIN,URINE TRACE (NEGATIVE); UGLUCOSE NEGATIVE (NEGATIVE); UROBILINOGEN,URINE 0.2 EU/dL (0.2 - 1)
[2024-08-05 16:35] LABS: APPEARANCE,URINE SLIGHTLY HAZY (CLEAR)
[2024-08-05 16:38] LABS: BACTERIA,URINE 2+ /HPF (None Seen); MUCUS,URINE 2+ /LPF (None Seen); RBC,URINE 0-5 /HPF (0-5); SQUAMOUS EPITHELIAL CELL,UR 4-10 (MOD) /LPF (0-3 (FEW))
[2024-08-05] MEDS ORDERED: AMOX1TAB8 PO (17:47)
== END 2024-08-05 17:57 | disposition home or self-care (01) ==
LOC: MED 14:28
DX: K52.9 Noninfective gastroenteritis and colitis, unspecified (principal); E11.9 Type 2 diabetes mellitus without complications; I10 Essential (primary) hypertension; Z98.890 Other specified postprocedural states; Z79.899 Other long term (current) drug therapy; Z88.1 Allergy status to other antibiotic agents; Z88.8 Allergy status to other drugs, medicaments and biological substances
CPT/HCPCS: 36415; 74177; 80048; 80076; 81001; 83690; 85025; 87086; 96361; 96374; 96375; 99285; J2270; J2405; Q9967; J7030

== ENCOUNTER 2024-08-29 22:00 | Emergency (ER) | payer OTHER ==
[~2024-08-29] VITALS: Ht 160 cm; Wt 63.0 kg
[~2024-08-29 22:00] MED LIST changes: +AMOX1TAB8 PO
[2024-08-29 22:30] VITALS: BP 127/83; PULSE 60; RESP 16; TEMP 98.1; O2SAT 99
[2024-08-29] MEDS: ONDANSETRON 4 MG ODT PO ONE (23:29)
[2024-08-29] MEDS: KETOROLAC 30 MG/ML VIAL IM ONE (23:29)
[2024-08-29] MEDS: ACETAMINOPHEN EXTRA STRENGTH 500 MG TAB PO ONE (23:35)
[2024-08-29 23:45] LABS: BASOPHILS % (AUTO) 0.4 % (0.0-2.0); EOSINOPHILS # (AUTO) 0.2 K/uL (0-0.4); EOSINOPHILS % (AUTO) 2.5 % (0.0-4.0); HEMATOCRIT 37.6 % (36-52); LYMPHOCYTES # (AUTO) 1.4 K/uL (2.0-11.5); LYMPHOCYTES % (AUTO) 18.3 % (20.5-51.1); MEAN CORPUSCULAR HEMOGLOBIN 27 pg (27-31); MEAN CORPUSCULAR HGB CONC 32 g/dL (33-37); MEAN CORPUSCULAR VOLUME 83.8 fL (80-94); MONOCYTES # (AUTO) 0.8 K/uL (0.8-1.0); MONOCYTES % (AUTO) 10.6 % (1.7-9.3); NEUTROPHILS # (AUTO) 5.2 K/uL (1.8-7.7); NEUTROPHILS % (AUTO) 68.2 % (42.2-75.2); PLATELET COUNT (AUTO) 389 K/uL (140-450); RED BLOOD CELL COUNT(AUTO) 4.48 MIL/uL (4.20-6.10); RED CELL DISTRIBUTION WIDTH 17.9 % (11.6-13.7); WHITE BLOOD COUNT (AUTO) 7.6 K/uL (4.8-10.8)
[2024-08-30 00:12] LABS: ANION GAP 13.3 (8-16); CALCIUM 9.1 mg/dL (8.5-10.1); CARBON DIOXIDE 23.4 mmol/L (21-32); CREATININE 1.4 mg/dL (0.6-1.3); POTASSIUM 4.7 mmol/L (3.5-5.1)
[2024-08-30 00:18] LABS: ALBUMIN 3.4 g/dL (3.4-5.0); BILIRUBIN,DIRECT 0.2 mg/dL (0.0-0.3); TOTAL BILIRUBIN 0.5 mg/dL (0.0-1.0); TOTAL PROTEIN, SERUM 7.7 g/dL (6.4-8.2)
[2024-08-30] MEDS: oxyCODONE 10 MG TABER PO ONE ×2 (00:40→06:51)
[2024-08-30] MEDS ORDERED: PROPOFOL 1000 MG/100 ML PREMIX 100 ML IV ONE (01:50)
[2024-08-30 01:56] LABS: APPEARANCE,URINE CLEAR (CLEAR); BILIRUBIN,URINE NEGATIVE (NEGATIVE); BLOOD, URINE NEGATIVE (NEGATIVE); COLOR,URINE YELLOW (YELLOW); LEUKOCYTE ESTERASE ,URINE TRACE (NEGATIVE); NITRITE, URINE NEGATIVE (NEGATIVE); PROTEIN,URINE 1+ (NEGATIVE); UGLUCOSE NEGATIVE (NEGATIVE); UROBILINOGEN,URINE 0.2 EU/dL (0.2 - 1)
[2024-08-30 02:09] LABS: BACTERIA,URINE 10-30 (MOD) /HPF (None Seen); MUCUS,URINE 1+ /LPF (None Seen); RBC,URINE 0-5 /HPF (0-5); SQUAMOUS EPITHELIAL CELL,UR 0-3 (FEW) /LPF (0-3 (FEW))
[2024-08-30] MEDS: MORPHINE SULFATE 4 MG/ML SYR IVP ONE (03:30)
[2024-08-30] MEDS ORDERED: CEPH-588 PO (06:21)
[2024-08-30] MEDS ORDERED: ONDA-188 PO (06:21)
[2024-08-30 06:57] VITALS: BP 119/80; PULSE 78; RESP 17; TEMP 98.1; O2SAT 98
[2024-08-31] MEDS ORDERED: ONDA-188 PO (09:46)
[2024-08-31] MEDS ORDERED: CEPH-588 PO (09:46)
== END 2024-08-30 06:57 | disposition home or self-care (01) ==
LOC: MED 22:00
DX: K52.9 Noninfective gastroenteritis and colitis, unspecified (principal); K63.89 Other specified diseases of intestine; E11.9 Type 2 diabetes mellitus without complications; K21.9 Gastro-esophageal reflux disease without esophagitis; I10 Essential (primary) hypertension; Z79.899 Other long term (current) drug therapy; Z88.1 Allergy status to other antibiotic agents; Z88.8 Allergy status to other drugs, medicaments and biological substances
CPT/HCPCS: 36415; 74176; 80048; 80076; 81001; 83690; 85025; 87086; 96372; 96374; 99285; J1885; J2270; Q0162